=== PATIENT | female | born 2005 | race African-American/Black ===

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

== ENCOUNTER 2024-04-09 10:19 | Emergency (ER) | payer OTHER, SELFPAY ==
[2024-04-09 10:23] VITALS: BP 137/84; PULSE 90; RESP 18; TEMP 36.4; O2SAT 100
--- NOTE | 2024-04-09 11:43 | ED.URI ---
HPI - URI/Sore Throat General Chief Complaint: Upper Respiratory Infection Stated Complaint: sinus infection Time Seen by Provider: 04/09/24 11:14 History of Present Illness HPI Narrative: Patient is a 18 year old female with no PMH here with sore throat and nasal congestion x 2 days. she notes some increased sinus drainage which has caused her to cough up sputum. She has no past medical history. She has had a subjective fever at home. Denies shortness of breath. Denies diarrhea or abdominal pain. No sick contacts. Related Data Allergies Allergy/AdvReac Type Severity Reaction Status Date / Time No Known Allergies Allergy Verified 01/12/21 16:01 Review of Systems Review of Systems: All systems reviewed & are unremarkable except as noted in HPI and below PMFSH Social History Social History Gender identity (if verbalized by the patient): Female Exam Narrative: GENERAL: Well-appearing, well-nourished, and in no acute distress. HEAD: Normocephalic, atraumatic. EYES: PERRLA and EOMI. ENT: Nares clear. Mucous membranes moist. Mild maxillary sinus tenderness. Pharyngeal erythema without swelling or exudates. NECK: Supple. CHEST: Clear to auscultation. No respiratory distress. HEART: Regular rate and rhythm. Normal peripheral pulses. ABDOMEN: Soft, nontender, nondistended. EXTREMITIES: Normal range of motion. No edema. SKIN: Warm, dry, no rash. NEURO: No focal deficits. Alert and oriented x3. Course Course Emergency Course: Chart review performed, patient here with headaches, sinus drainage and sore throat x2 days. Triage vitals grossly normal. One prior ED visit in our system for a migraine headache in 2020. Patient seen evaluated, nontoxic appearing, alert, oriented. Concern for likely viral sinusitis given patient has only had symptoms for 2 days, less likely to be bacterial sinusitis. Will do COVID, influenza, RSV swab as well as a dose of Tylenol for her symptoms. She took no medications prior to coming into the emergency department. Patient agreeable to workup and plan. Patient COVID positive. Healthy 18 year old female with mild symptoms, do not believe she will benefit from Paxlovid at this time. The results of pertinent diagnostic studies and exam findings were discussed. The patient?s provisional diagnosis and plan of care were discussed with the patient and present family. The patient and/or present family expressed understanding of the diagnosis and plan. The nurse was instructed to provide written instructions and appropriate follow-up information. The patient understands their need and responsibility to obtain additional follow-up as instructed. The risks of medications administered and prescribed were discussed with the patient and family present. Vital Signs Vital signs: Vital Signs Temperature 97.5 F L 04/09/24 10:23 Pulse Rate 90 04/09/24 10:23 Respiratory Rate 18 04/09/24 10:23 Blood Pressure 137/84 04/09/24 10:23 Pulse Oximetry 100 04/09/24 10:23 Oxygen Delivery Room Air 04/09/24 10:23 Temperature 97.5 F L 04/09/24 10:23 Pulse Rate 90 04/09/24 10:23 Respiratory Rate 18 04/09/24 10:23 Blood Pressure 137/84 04/09/24 10:23 Pulse Oximetry 100 04/09/24 10:23 Oxygen Delivery Room Air 04/09/24 10:23 MDM - URI/Sore Throat Lab Data Labs: Lab Results 04/09/24 Range/Units 11:42 Influenza A (RT-PCR) Negative (Negative) Influenza B (RT-PCR) Negative (Negative) RSV (RT-PCR) Negative (Negative) SARS-CoV-2 RNA (RT-PCR) Positive A (Negative) Discharge Plan Discharge Clinical Impression: COVID, Acute viral sinusitis Patient Disposition: Home, Self-Care Condition: Stable Instructions: Antibiotic Form, COVID-19 (Coronavirus Disease 2019) (ED) Additional Instructions: You tested positive for COVID-19. Follow CDC guidelines for return to work. I recommen
[2024-04-09 12:24] LABS: Influenza A QL RT-PCR Negative (Negative); Influenza B QL RT-PCR Negative (Negative); RSV RNA, RT-PCR Negative (Negative); SARS-CoV-2 RNA PCR Positive (Negative)
[2024-04-09] MEDS: ACETAMINOPHEN 325 MG TABLET 650 MG PO (12:37)
[2024-04-09 12:59] VITALS: BP 126/84; PULSE 78; RESP 16; TEMP 36.4; O2SAT 100
== END 2024-04-09 13:01 | disposition home or self-care (01) ==
PROVIDERS: Emergency Provider Student in an Organized Health Care Education/Training Program
DX: U07.1 COVID-19 (principal); J01.90 Acute sinusitis, unspecified; B97.89 Other viral agents as the cause of diseases classified elsewhere
CPT/HCPCS: 87637; 99283; A9270

== ENCOUNTER 2024-06-03 10:34 | Emergency (ER) | payer OTHER, SELFPAY ==
[2024-06-03 10:47] VITALS: TEMP 36.8
[2024-06-03 10:51] VITALS: BP 130/97; PULSE 75; RESP 18; O2SAT 100
[2024-06-03 10:52] VITALS: O2SAT 100
--- NOTE | 2024-06-03 11:19 | ED.URI ---
HPI - URI/Sore Throat General Chief Complaint: Upper Respiratory Infection Stated Complaint: uri Time Seen by Provider: 06/03/24 11:01 History of Present Illness HPI Narrative: This is a 18-year-old otherwise healthy female presenting to the emergency department chief complaint of URI symptoms. She expresses headache, sinus pressure, productive cough. Intermittent symptoms for last several weeks. She was recently diagnosed with COVID 4 weeks prior but has been testing negative at home. Denies any fever, chills. No shortness of breath, chest pain, nausea, vomiting, vision changes. Has not seen anybody about this or taken anything [id number] besides Mucinex without improvement. Related Data Allergies Allergy/AdvReac Type Severity Reaction Status Date / Time No Known Allergies Allergy Verified 01/12/21 16:01 Review of Systems Review of Systems: [facility] Social History Social History Gender identity (if verbalized by the patient): Female Exam Narrative: GENERAL: [Well-appearing, well-nourished, and in no acute distress.] HEAD: [Normocephalic, atraumatic.] EYES: [PERRLA and EOMI.] ENT: Nares clear, no rhinorrhea or epistaxis. Mucous membranes moist. Some tenderness over the maxillary and frontal sinuses without any purulent drainage. Ear, nose and throat without any swelling, erythema, TMs are clear. NECK: Supple. CHEST: [Clear to auscultation. No respiratory distress.] HEART: [Regular rate and rhythm]. No murmur heard. [Normal peripheral pulses.] ABDOMEN: [Soft, nondistended], [nontender], [No rigidity or guarding] EXTREMITIES: Normal range of motion. [No edema.] SKIN: Warm, dry, no rash. NEURO: [No focal deficits]. Alert and oriented [x3.] PSYCH: [Normal mood and affect.] Course Vital Signs Vital signs: Vital Signs Temperature 36.8 C 06/03/24 10:47 Temperature 36.8 C 06/03/24 10:47 Pulse Rate 88 06/03/24 12:25 Respiratory Rate 18 06/03/24 12:25 Blood Pressure 132/92 H 06/03/24 12:25 Pulse Oximetry 100 06/03/24 12:25 Oxygen Delivery Room Air 06/03/24 10:52 MDM - URI/Sore Throat MDM Narrative Medical decision making narrative: 18-year-old otherwise healthy female presenting for viral URI type symptoms. Unremarkable physical examination with no concerning findings on ear nose or throat assessment. Normal vital signs without hypoxia or fever. Will be testing for COVID fluid RSV and treating symptomatically with combination of pseudoephedrine, Mucinex, ibuprofen. COVID swabs were negative. Patient was re-evaluated had complete symptomatic improvement. At this time she is stable for outpatient follow-up with prescriptions for some of the above medications. All her questions were answered she expressed understanding of discharge at this time. Lab Data Labs: Lab Results 06/03/24 Range/Units 12:07 Influenza A (RT-PCR) Negative (Negative) Influenza B (RT-PCR) Negative (Negative) SARS-CoV-2 RNA (RT-PCR) Negative (Negative) Discharge Plan Discharge Clinical Impression: Upper respiratory infection Patient Disposition: Home, Self-Care Condition: Stable Instructions: Antibiotic Form, Sinusitis (ED), Upper Respiratory Infection (DC), Viral Syndrome (ED) Prescriptions: New pseudoephedrine HCl 30 mg tablet 30 mg PO Q4-6H PRN (Reason: nasal congestion) Qty: 14 0RF Rx Instructions: DNExceed 4 doses/24h ibuprofen 600 mg tablet 600 mg PO TID PRN (Reason: fever or pain) Qty: 20 0RF guaifenesin [Mucus Relief ER] 600 mg tablet extended release 12hr 600 mg PO BID Qty: 20 0RF No Action fluticasone propionate [Flonase Allergy Relief] 50 mcg/actuation spray,suspension 1 spray intranasal Q12H 7 Days Qty: 16 0RF Rx Instructions: administer into each nostril guaifenesin [Mucinex] 1,200 mg tablet extended release 12hr
[2024-06-03] MEDS: IBUPROFEN 400 MG TABLET 800 MG PO (11:33)
[2024-06-03] MEDS: PSEUDOEPHEDRINE HCL 30 MG TABLET 60 MG PO (11:33)
[2024-06-03] MEDS: guaiFENesin 12 HR 600 MG TABCR PO (11:33)
[2024-06-03 12:25] VITALS: BP 132/92; PULSE 88; RESP 18; O2SAT 100
[2024-06-03 13:18] LABS: Influenza A QL RT-PCR Negative (Negative); Influenza B QL RT-PCR Negative (Negative); SARS-CoV-2 RNA PCR Negative (Negative)
[2024-06-03 13:37] VITALS: BP 130/97; PULSE 89; RESP 18; TEMP 36.6; O2SAT 100
== END 2024-06-03 13:39 | disposition home or self-care (01) ==
PROVIDERS: Emergency Provider Student in an Organized Health Care Education/Training Program
DX: J06.9 Acute upper respiratory infection, unspecified (principal); Z20.822 Contact with and (suspected) exposure to COVID-19
CPT/HCPCS: 87636; 99283; A9270

== ENCOUNTER 2024-07-08 07:16 | Emergency (ER) | payer OTHER, SELFPAY ==
[2024-07-08 07:20] VITALS: BP 146/79; PULSE 96; RESP 16; TEMP 37; O2SAT 99
[2024-07-08 07:28] VITALS: BP 132/101; PULSE 101; RESP 16; TEMP 36.4; O2SAT 100; O2SAT 99
--- NOTE | 2024-07-08 07:35 | PC.NURSE ---
Charting done by nursing unit manager Love corrales, RN agrees
--- NOTE | 2024-07-08 07:52 | ED.GENADULT ---
HPI - General Adult General Chief complaint: Upper Respiratory Infection Stated complaint: hoarse voice, st Time Seen by Provider: 07/08/24 07:21 History of Present Illness HPI narrative: 18-year-old female presented emergency department for evaluation for sore throat and congestion. Patient states the symptoms started after she was living in the emergency department. Patient states she had brought her son to the emergency department for similar symptoms including fever. Related Data Allergies Allergy/AdvReac Type Severity Reaction Status Date / Time No Known Allergies Allergy Verified 07/08/24 07:34 Review of Systems Review of Systems: All systems reviewed & are unremarkable except as noted in HPI and below PMFSH Social History Social History Gender identity (if verbalized by the patient): Female Exam Narrative: APPEARANCE: Well appearing, no pain, no distress, well-nourished. HEAD: normocephalic, atraumatic. EYES: PERRLA/EOMI, conjunctivae clear. NOSE: Normal no drainage EARS:TMS clear with good light reflex. THROAT: Pharynx clear, no exudate. NECK: Supple. No adenopathy, no masses. RESPIRATORY: Airway patent, respirations nonlabored. Clear to auscultation bilaterally, no rales, rhonchi, wheezing. CARDIOVASCULAR: Regular rate and rhythm without murmurs rubs or gallops. ABDOMINAL: Soft, nontender, nondistended, normal bowel sounds MUSCULOSKELETAL: Moves all extremities. Strength/ROM intact, No edema, No calf tenderness. NEURO: Alert. Cranial nerves II through XII intact. Grossly intact SKIN: Warm, dry. Normal Color Course Course Emergency Course: Patient was negative for influenza RSV COVID and strep. Suspect other viral etiology for her sore throat. Vital Signs Vital signs: Vital Signs Temperature 98.6 F 07/08/24 07:20 Pulse Rate 96 07/08/24 07:20 Respiratory Rate 16 07/08/24 07:20 Blood Pressure 146/79 H 07/08/24 07:20 Pulse Oximetry 99 07/08/24 07:20 Oxygen Delivery Room Air 07/08/24 07:20 Temperature 97.6 F 07/08/24 07:28 Pulse Rate 101 H 07/08/24 07:28 Respiratory Rate 16 07/08/24 07:28 Blood Pressure 132/101 H 07/08/24 07:28 Pulse Oximetry 99 07/08/24 07:28 Oxygen Delivery Room Air 07/08/24 07:28 Medical Decision Making MDM Narrative Medical decision making narrative: 18-year-old female presents emergency department for evaluation for sore throat. Patient was negative for influenza RSV COVID and strep. Suspect other viral etiology as the underlying cause for her sore throat. Patient was updated on the results of her workup. Patient was also updated on systematic treatment from. All questions concerns were addressed. Differential Diagnosis Differential Diagnosis: Viral sore throat, strep throat, COVID, RSV, influenza Vital Signs Vital Signs: Vital Signs Temperature 98.6 F 07/08/24 07:20 Pulse Rate 96 07/08/24 07:20 Respiratory Rate 16 07/08/24 07:20 Blood Pressure 146/79 H 07/08/24 07:20 Pulse Oximetry 99 07/08/24 07:20 Oxygen Delivery Room Air 07/08/24 07:20 Temperature 97.6 F 07/08/24 07:28 Pulse Rate 101 H 07/08/24 07:28 Respiratory Rate 16 07/08/24 07:28 Blood Pressure 132/101 H 07/08/24 07:28 Pulse Oximetry 99 07/08/24 07:28 Oxygen Delivery Room Air 07/08/24 07:28 Lab Data Labs: Lab Results 07/08/24 Range/Units 07:35 Influenza A (RT-PCR) Negative (Negative) Influenza B (RT-PCR) Negative (Negative) RSV (RT-PCR) Negative (Negative) SARS-CoV-2 RNA (RT-PCR) Negative (Negative) Group A Strep (PCR) Not detected (Negative) Discharge Plan Discharge Clinical Impression: Pharyngitis Patient Disposition: Home, Self-Care Condition: Stable Instructions: Antibiotic Form, Pharyngitis (ED) Additional Instructions: Decongestant to help with postnasal drip. Tylenol and ibuprofen for pain, body aches, fever. Follow a soft diet as needed. Have close follow-up with your primary care physician. If you have any worsening symptoms and please call or return to the emergency department Prescriptions: No Action pseudoephedrine HCl 30 mg tablet 30 mg PO Q4-6H PRN (Reason: nasal congestion) Qty: 14 0RF Rx Instructions: DNExceed 4 doses/24h ibuprofen 600 mg tablet 600 mg PO TID PRN (Reason: fever or pain) Qty: 20 0RF guaifenesin [Mucus Relief ER] 600 mg tablet extended release 12hr 600 mg PO BID Qty: 20 0RF fluticasone propionate [Flonase Allergy Relief] 50 mcg/actuation spray,suspension 1 spray intranasal Q12H 7 Days Qty: 16 0RF Rx Instructions: administer into each nostril guaifenesin [Mucinex] 1,200 mg tablet extended release 12hr 1,200 mg PO BID PRN (Reason: congestion) 10 Days Qty: 20 0RF Follow-up/Referrals: PHYSICIAN NOT ON STAFF,NONSTAFF [Primary Care Provider] -
[2024-07-08 08:09] LABS: Strep Group A RT-PCR NOT DETECTED (Negative)
[2024-07-08 08:19] LABS: Influenza A QL RT-PCR Negative (Negative); Influenza B QL RT-PCR Negative (Negative); RSV RNA, RT-PCR Negative (Negative); SARS-CoV-2 RNA PCR Negative (Negative)
[2024-07-08 08:39] VITALS: BP 139/103; PULSE 81; RESP 15; TEMP 36.4; O2SAT 100
== END 2024-07-08 08:39 | disposition home or self-care (01) ==
PROVIDERS: Emergency Provider Emergency Medicine
DX: J02.9 Acute pharyngitis, unspecified (principal); Z20.822 Contact with and (suspected) exposure to COVID-19
CPT/HCPCS: 87637; 87651; 99283

== ENCOUNTER 2025-09-05 20:53 | Emergency (ER) | payer OTHER, SELFPAY ==
[2025-09-05 21:02] VITALS: BP 139/96; PULSE 104; RESP 18; TEMP 37.6; O2SAT 98
--- OUTSIDE RECORDS SUMMARY | 2025-09-05 21:27 | XMS_ITS | Clinical Summary ---
Author Organization [facility] Address [address] [place] [address] Phone Care Team Providers Care Guidance Services Coordinator Name Role Phone Unavailable Primary Care Provider Unavailabl e Allergies No known active allergies Medications naproxen (NAPROSYN) 500 mg tablet Take 1 Tablet (500 mg) by mouth 2 times daily with meals. 21 Tablet 5 Active albuterol sulfate HFA 90 mcg/actuation aerosol inhaler Take 2 Puffs by inhalation every 6 hours as needed for Wheezing or Shortness of Breath. 8.5 Gram 5 Active codeine-guaiFEN esin (ROBITUSSIN-AC) 10-100 mg/5 mL LiquidIndicatio ns:Subacute cough Take 10 mL by mouth every 4 hours as needed for Cough. 120 mL Active Encounters Date Type Department Care Team Description 08/28/2025 External Device Data [facility] ABSTRACTION Provider, Abstract 07/31/2025 External Device Data [facility]CTION Provider, Abstract 07/31/2025 External Device Data [facility] Provider, Abstract 07/31/2025 External Device Data [facility] Provider, Abstract 07/25/2025 External Device Data [facility] Provider, Abstract 07/25/2025 External Device Data [facility] Provider, Abstract 07/10/2025 External Device Data [facility] Provider, Abstract 07/03/2025 External Device Data [facility]CTION Provider, Abstract 06/19/2025 External Device Data [facility] Provider, Abstract 06/19/2025 External Device Data [facility]CTION Provider, Abstract 06/19/2025 External Device Data [facility]STRACTION Provider, Abstract from Last 3 Months Social History Tobacco Use Types Packs/Day Years Used Date Smoking Tobacco: Never Tobacco Cessation:Counseling Given: Not Answered Alcohol Use Standard Drinks/Week Comments Not Currently 0 (1 standard drink = 0.6 oz pur e alcohol) Feeling Safe Answer Date Recorded Are you in a relationship wi th someone who hurts you emotionally and/or physically? 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 Gender Identity Not on file Sexual Orientation Not on file Last Filed Vital Signs Vital Sign Reading Time Taken Comments Blood Pressure 130/90 11/18/2024 12:44 AM CAR RENTAL AGENCY MANAGER Pulse 90 11/18/2024 12:44 AM CAR RENTAL AGENCY MANAGER Temperature 37.3 C (99.1 F) 11/18/2024 12:44 AM CAR RENTAL AGENCY MANAGER Respiratory Rate 16 11/18/2024 12:44 AM CAR RENTAL AGENCY MANAGER Oxygen Saturation 100% 11/18/2024 12:44 AM CAR RENTAL AGENCY MANAGER Inhaled Oxygen Concentration - - Weight 86.2 kg (190 lb) 11/17/2024 8:33 PM CAR RENTAL AGENCY MANAGER Height 157.5 cm (5' 2) 11/17/2024 8:33 PM CAR RENTAL AGENCY MANAGER Body Mass Index 34.75 11/17/2024 8:33 PM CAR RENTAL AGENCY MANAGER Plan of Treatment Health Maintenance Due Date Last Done Comments CHLAMYDIA SCREENING (ANNUAL) 11-24 YEARS 2014 HPV VACCINES (1 - 3-dose series) 2018 DTAP/TDAP/TD VACCINES (1 - Tdap) 2022 HEPATITIS B VACCINES (1 of 3 - 19+ 3-dose series) 08/29 CERVICAL CANCER SCREENING 2024 HPV/Cotest (21-29) 2024 PAP SMEAR 2024 INFLUENZA VACCINE (#1) 2025
--- OUTSIDE RECORDS SUMMARY | 2025-09-05 21:27 | XMS_ITS | Clinical Summary ---
Author Organization [facility] Address [address] [place] [address] Care Team Providers Care Skull Splitter Name Role Phone Floridalma Mclean MD Primary Care Provider [phone] Source Comments [facility],non-owned Affiliates and Associated Physician Practices is amultiple site organization consisting of ambulatory clinics and hospital sitesin [place], [place], [place] and [place]. This disclosure is being madepursuant to the Care Everywhere program and may not contain all information available regarding this patient. Last updated 18.[facility] Allergies No known active allergies Medications * Be aware that medications may not be up to date on this document. Alwaysverify current medications with the patient. riboflavin 100 MG tablet Take 4 (four) tablets by mouth every morning 120 tablet 5 01/14/2021 Active naproxen (NAPROSYN) 500 MG tablet Take 1 pill at start of a bad headache. Can take a second pill in 2 hours but No more then 4 pills in a week. 16 tablet 5 01/14/2021 Active Active Problems Problem Noted Date Diagnosed Date Migraine without aura and wi thout status migrainosus, not intractable 01/14/2021 Tension headache 01/14/2021 Social History Tobacco Use Types Packs/Day Years Used Date Smoking Tobacco: Never Assessed Comments Unknown Sex and Gender Information Value Date Recorded Sex Assigned at Not on file Legal Sex Female 12:37 PM SURGICAL SERVICES MANAGER Gender Identity Not on file Sexual Orientation Not on file Last Filed Vital Signs Vital Sign Reading Time Taken Comments Blood Pressure - - Pulse - - Temperature - - Respiratory Rate - - Oxygen Saturation - - Inhaled Oxygen Concentration - - Weight 102.1 kg (225 lb) 01/14/2021 9:27 AM CDT Height - - Body Mass Index - - Plan of Treatment Health Maintenance Due Date Last Done Comments HIV SCREENING 2018 HPV VACCINE (1 - 3-dose series) 2018 CHLAMYDIA/GONORRHEA SCREENING 2019 MENINGOCOCCAL (Group B) VACC INE SHARED DECISION-MAKING (1 of 2 - Standard) 2019 HEPATITIS C SCREENING 09/20/2021 DTAP/TDAP/TD VACCINES (1 - Tdap) 2022 HEPATITIS B VACCINE (1 of 3 - 19+ 3-dose series) 2022 DEPRESSION SCREENING 09/27/2024 COVID-19 VACCINE (1 - 2024-2 6 season) 2025 INFLUENZA VACCINE (#1) 2025 ZOSTER VACCINE (1 of 2) 2053 HIB VACCINE Aged Out No longer eligi ble based on patient's age to complete this topic MENINGOCOCCAL GROUPS A/C/Y/W VACCINE Aged Out No longer eligible b ased on patient's age to complete this topic PNEUMOCOCCAL VACCINE Aged Out No long er eligible based on patient's age to complete this topic Insurance [facility] Care Teams Skull Splitter Relationship Specialty Start Date End Date Floridalma Mclean MD [address] [place] [address] PCP - General 07/08/11
[2025-09-05 22:10] LABS: Influenza A QL RT-PCR Negative (Negative); Influenza B QL RT-PCR Negative (Negative); RSV RNA, RT-PCR Negative (Negative); SARS-CoV-2 RNA PCR Negative (Negative)
--- NOTE | 2025-09-05 22:12 | ED_ITS ---
HPI - Fever General Chief Complaint: Fever Stated Complaint: Fever, body aches; Time Seen by Provider: 09/05/25 22:06 History of Present Illness HPI Narrative: Patient is a 19-year-old female who presents to the ER with a 2 day history of headache, sore throat, fever, congestion, and body aches. She reports her son came home sick from a birthday libertarian and she started experiencing the same symptoms. Patient denies any shortness of breath, significant cough, or headache. She reports her only medical history is a Caesarean section. Pt reports she is 8 weeks . Related Data Allergies Allergy/AdvReac Type Severity Reaction Status Date / Time No Known Allergies Allergy Verified 07/08/24 07:34 Review of Systems Review of Systems: All systems reviewed & are unremarkable except as noted in HPI and below PMFSH Social History Social History Gender identity (if verbalized by the patient): Female Exam Narrative: GENERAL: Ill appearing, well-nourished, non-toxic, in no acute distress. HEAD: Normocephalic, atraumatic. NECK: Supple. Mild cervical adenopathy, no masses. RESPIRATORY: Airway patent, respirations nonlabored. Clear to auscultation bilaterally, no rales, rhonchi, wheezing. CARDIOVASCULAR: Regular rate and rhythm without murmurs, rubs, or gallops. Peripheral pulses 2+ and equal bilaterally. ABDOMINAL: Soft, nontender, nondistended, no hepatosplenomegaly. Normoactive BS. MUSCULOSKELETAL: Moves all extremities. Strength/ROM intact without gross deformities. SKIN: Warm, dry, normal color. No rashes. NEURO: A&O X3. Speech clear. Cranial nerves II-XII intact. No ataxic movements. PSYCHIATRIC: Appropriate mood and affect. Normal interaction. Course Vital Signs Vital signs: Vital Signs Temperature 37.6 C H 09/05/25 21: Pulse Rate 104 H 09/05/25 21:02 Respiratory Rate 18 09/05/25 21:02 Blood Pressure 139/96 H 09/05/25 21:02 Pulse Oximetry 98 09/05/25 21: Oxygen Delivery Room Air 09/05/25 21: Temperature 37.6 C H 09/05/25 21:02 Pulse Rate 104 H 09/05/25 21:02 Respiratory Rate 18 09/05/25 21:02 Blood Pressure 139/96 H 09/05/25 21:02 Pulse Oximetry 98 09/05/25 21:02 Oxygen Delivery Room Air 09/05/25 21:02 [facility] Narrative Medical decision making narrative: Patient is a 19-year-old female who presents to the ER with a 2 day history of headache, sore throat, fever, congestion, and body aches. She reports her son came home sick from a birthday libertarian and she started experiencing the same symptoms. Patient denies any shortness of breath, significant cough, urinary symptoms or headache. She reports her only medical history is a Caesarean section. Pt reports she is 8 weeks . Patient Education/Shared MDM: Results of lab work shared with patient. She endorses improvement of symptoms following medication administration. Patient strongly advised to maintain hydration status upon discharge and follow-up with her OBGYN as soon as possible. She will not be discharged home with any new prescriptions. Strict return precautions provided. Patient verbalized understanding and is in agreement with plan. Vital signs stable at time of discharge. All questions answered. Differential Diagnosis Differential Diagnosis: Strep throat, COVID, fluid, upper respiratory infection Lab Data [facility] Lab Attestation statement: I personally reviewed the patient's lab results. Labs: Lab Results 09/05/25 09/05/25 Range/Units 21:25 22:29 Influenza A (RT-PCR) Negative (Negative) Influenza B (RT-PCR) Negative (Negative) RSV (RT-PCR) Negative (Negative) SARS-CoV-2 RNA (RT-PCR) Negative (Negative) Group A Strep (PCR) Not detected (Negative) Discharge Plan Discharge Clinical Impression: Upper respiratory infection Patient Disposition: Home Condition: Stable Instructions: Antibiotic Form, Upper Respiratory Infection (ED) Additional Instructions: Please return to the ER with any worsening symptoms. Follow-up with your OBGYN in the next 2-3 days to ensure you are feeling better. You may take Tylenol as needed for pain control. Please remember to drink lots of water. Patient Language: Upper Sorbian Prescriptions: No Action pseudoephedrine HCl 30 mg tablet 30 mg PO Q4-6H PRN (Reason: nasal congestion) Qty: 14 0RF Rx Instructions: DNExceed 4 doses/24h ibuprofen 600 mg tablet 600 mg PO TID PRN (Reason: fever or pain) Qty: 20 0RF guaifenesin [Mucus Relief ER] 600 mg tablet extended release 12hr 600 mg PO BID Qty: 20 0RF fluticasone propionate [Flonase Allergy Relief] 50 mcg/actuation spray,suspension 1 spray intranasal Q12H 7 Days Qty: 16 0RF Rx Instructions: administer into each nostril guaifenesin [Mucinex] 1,200 mg tablet extended release 12hr 1,200 mg PO BID PRN (Reason: congestion) 10 Days Qty: 20 0RF Follow-up/Referrals: Leland Pate MD [Physician, SUBSTATION MANAGER] PHYSICIAN NOT ON STAFF,NONSTAFF [Non-Staff] Stand Alone Forms: Work/School Release IP Time of Disposition: 23:07
[2025-09-05] MEDS: ACETAMINOPHEN 500 MG TABLET 1000 MG PO (22:29)
--- OUTSIDE RECORDS SUMMARY | 2025-09-05 22:35 | XMS_ITS | Continuity of Care Document ---
Author Organization [facility] [place] Address [address] [place] [address] Assessment No assessment recorded. Plan of Treatment Reminders Order Date Submit Date Provider Last Modified By Organization Details Last Modified Time Details Appointments U/S OB FIRST LOOK 2025 08:30A M ULTRASOUND Not available Not available Not available OB ROUTINE 2025 09:00A M RHINA DEVRIES MD Not available Not available Not available Lab None recorde d. Referral None recorde d. Procedures None recorde d. Surgeries None recorde d. Imaging None recorde d. Medication Orders None recorde d. Patient TargetsNo targets recorded. Patient InstructionsNo instructions recorded. Reason for Referral None Reported. Results Created Date Observation Date Name Description Value Unit Range Abnormal Flag Note LastModifiedBy Organization Detail LastModifiedTime 09/03/20 25 09/03/2025 imagi ng/di agnos tic resul t No observ ation record ed. MARLEN Mcgovern [address], [place], [address], 09/03/2025 11:40:48 Result Notes None recorded. Procedures Surgical History Date Name Laterality Status Provider Name and Address Organization Details Recorded Time 08/21/20 24 Nexplanon Removal completed RHINA DEVRIES MD [address], [place], [address], , P[facility] 08/21/2024 16:45:12 11/30/19 24 Control Implant Replacement completed Merry Lira, NAV[facility]- [address], [place], [address], [place] [facility] 11/30/2023 14:58:01 08/29/20 19 Caesarean Section completed Awa Bennett [facility] 11/30/2023 14:37:15 Imaging Results None recorded. Procedure Notes None recorded. Medical Equipment None Reported. Allergies No known drug allergies Medications Name Sig Start Date Stop Date Status Note LastModified by Organization Details LastModified Time doxycycline hyclate 100 mg capsule Take 1 capsule twice a day by oral route for 7 days. 09/03 completed Not Available Not Available Not Available prednisone 20 mg tablet 11/29 completed Not Available Not Available Not Available benzonatate 100 mg capsule 11/29 completed Not Available Not Available Not Available ibuprofen 600 mg tablet 07/10 completed Not Available Not Available Not Available fluticasone propionate 50 mcg/actuati on nasal spray,suspe nsion 07/10 completed Not Available Not Available Not Available doxycycline hyclate 100 mg tablet Take 1 tablet twice a day by oral route with meal(s) for 7 days. 01/12 completed Not Available Not Available Not Available Nexplanon 68 mg subdermal implant Inject 1 implant by subcutane ous route. 07/10 completed Not Available Not Available Not Available guaifenesin ER 600 mg tablet, extended release 12 hr 07/10 completed Not Available Not Available Not Available Vitals Date Recorded Body height Body mass index (BMI) Body weight Systolic And Diastolic Provider Name and Address Organization Details Last Updated DateTime 07/10/2025 157.48 cm 43.2 kg/m2 499033.8 g 134/88 mm[Hg] Awa Bennett [facility] 07/10/2025 10:05:59 Social History Question Answer Notes LastModified by Organizat ion Details LastModified Time Tobacco Smoking Status Never Smoker Awa Bennett null, [facility] 11/30/2023 14:36:33 Are You Blind Or Do You Have Difficulty Seeing? No Information n ot available 11/30/2023 What Is Your Level Of Caffeine Consumption? None Information not available 11/30/2023 In The 14 Days Before Symptom Onset, Have You Had Close Contact With A Laboratory-confirm ed COVID-19 While That Case Was Ill? No Information n ot available 11/30/2023 In The 14 Days Before Symptom Onset, Have You Had Close Contact With A Person Who Is Under Investigation For COVID-19 While That Person Was Ill? No Information not available 11/30/2023 Have You Been To An Area Known To Be High Risk For COVID-19? No Information not available 11/30/2023 Are You Deaf Or Do You Have Serious Difficulty Hearing? No Information not available 11/30/2023 What Type Of Diet Are You Following? REGULAR Information n ot available 11/30/2023 What Is The Highest Grade Or Level Of School You Have Completed Or The Highest Degree You Have Received? [id number] Information not available 11/30/2023 Are There Any Guns Present In Your Home? No Information not available 11/30/2023 Do You Use Protection During Sex? No Information not available 11/30/2023 Do You Use Your Seat Belt Or Car Seat Routinely? Yes Information not available 11/30/2023 Do You Have Smoke And Carbon Monoxide Detectors In Your Home? Yes Information not available 11/30/2023 How Much Tobacco Do You Smoke? No Information not available 11/30/2023 Do You Use Sunscreen Routinely? No Information not available 11/30/2023 Have You Used IV Drugs? No Information not available 11/30/2023 Do You Have Difficulty Walking Or Climbing Stairs? No Information not available 11/30/2023 Sex: Unknown Functional Status Question Answer Note LastModified by Organizat ion Details LastModified Time Do you use any illicit or recreational drugs? No Information not available 11/30/2023 What is your level of alcohol consumption? None Information not available 11/30/2023 Are you currently employed? Yes Information not available 11/30/2023 Are you able to walk independently without assistance or assistive devices? YESWOREST Information not available 11/30/2023 Are you able to care for yourself independently? Yes Information not available 11/30/2023 What is your occupation? Employed Information not available 11/30/2023 Do you have difficulty dressing, bathing, grooming, or toileting? No Information not available 11/30/2023 What is your exercise level? None Information not available 11/30/2023 Mental Status Question Answer Note LastModified by Organization D etails LastModified Time Do you feel stressed (tense, restless, nervous, or anxious, or unable to sleep at night)? [id number] Information not available 11/30/2023 Family History Relationship Description Onset Age of this Age Resolved Age Notes LastModified by Organization Details LastModified Time Mother Hypertensive disorder Not available 2023 14:36:22 Maternal Grandfather Hypertensive disorder Not available 2023 14:36:22 Maternal Grandmother Hypertensive disorder Not available 2023 14:36:22 Paternal Grandfather Hypertensive disorder Not available 2023 14:36:22 Paternal Grandmother Hypertensive disorder Not available 2023 14:36:22 Medical History Condition Response Allergies (Food, seasonal, environmental ) N Other Y Blood Transfusion N Drug/Latex Allergies/Reactions N Breast Cancer N Dermatologic Disorders N Lung Disease N Defects or Inherited Disease N Breast Problem N Gestational Diabetes N Hematologic disorders N Anesthesia Complications N History of STI Y Deep Vein Thrombosis N Polycystic ovary syndrome N Anxiety Disorder N Autoimmune disease N Arthritis N Infertility N Polyps N Acid Reflux (GERD) N History of abnormal pap N Cancer N Stroke N Varicosities N Neurologic/Epilepsy N Endometriosis N High Cholesterol N Headaches N Fibromyalgia N Kidney Disease N Heart Problems N Kidney or Bladder Problems N Thyroid Problems N GI Problems N Eating Disorder N Anemia N Art (IVF or FET) N Psychiatric Illness N Ovarian Cancer N Diabetes N Pulmonary (TB, Asthma) N Hepatitis/Liver Disease N No Past Medical History N Eczema N Urinary Tract Infection N Abuse/Domestic Violence N Asthma N Trauma/Violence N Depression/ depression N Heart Disease N Pre-Eclampsia N Hypertension N Osteoporosis N Thrombophilias N Gynecological History Statement/Question Response Flow Heavy Date of LMP 07/07/2025 On BCP's at Conception? N N Was last menstrual period normal Y STIs/STDs Y HPV Vaccine Y Duration of Flow (days) 7 Current Control Method None Age at First Child 13 Are cycles usually normal Y Frequency of Cycle (Q days) 30 Sexually Active? Y IUD Menses Monthly Y Age of first menstrual cycle 11 Date of Last Pap Smear Sexual Problems? Yes LMP Definite N Obstetrics History GPAL:G 1 P 1 0 0 1 Type Value Full Term 1 Living 1 Total 1 Past Encounters Encounter ID Performer Location Encounter Start Date Encounter Closed Date Diagnosis/Indication Diagnosis SNOMED-CT Code Diagnosis ICD10 Code Diagnosis IMO Codes Diagnosis Note [id number] SOFÍA Renee [place] [address] [address] 07/10/2025 09:53:36 07/10/2025 11:45:05 Chlamydial infection 044826891 A74.9 [id number] Complete entire course of doxycyline No IC until all partners have been treated and its been 10 days since last dose of medication for allDiscuss ed the various types of STIs, related symptoms and the potential consequenc es (including effects on fertility) of STI infections . Reviewed ways to limit exposure and prevention techniques .TISH in 6-8 wks Cyst of right ovary 1223 [id number] N83.201 [id number] records request filled out by pt and faxed to obtain recent pelvic u/swe agreed to repeat a pelvic u/s in 6-8 wks along with TISH of chlamydiac ontracepti on options reviewed , declined at this timePrecau tions reviewed Time spent in visit is a total of 30 mins with at least 50% of visit consisting of counseling and review of plan of care. Health Concerns Section Related Observation LastModified by Organization Detai ls LastModified Time None Recorded Concern Status LastModified by Organization Details LastModified Time None Recorded Payers Encounter Date Sequence Insurance Name Policy Number Policy Zelaya Covered Member ID Zelaya Member ID Guarantor Name 07/10/2025 1 [facility] (MEDICAID HMO) [id number] Rehan Zaragoza [id number] Rehan Zaragoza Notes Date Note Type Note Provider Name and Address Organization Details Recorded Time 07/10/2025 text/html 19yo [id number] today for ED f/u. She went to the ED for pelvic pain on 07/02. (+) chlamydia and started on doxycyline (has 2 days left). Noted to have a 3.6cm right ovarian cyst per pt via pelvic u/s. Symptoms have been improving.Her partner has started treatmentDenies abnormal vaginal discharge, odors, itching, irritationNeg n/v/fneg flu-like symptoms SOFÍA Renee [address], [place], [address], [place] - [facility] 07/10/2025 11:41:56 OBGyn Episode No OBEpisode recorded.
--- OUTSIDE RECORDS SUMMARY | 2025-09-05 22:35 | XMS_ITS | Clinical Summary ---
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 Gender Identity Not on file Sexual Orientation Not on file Last Filed Vital Signs Vital Sign Reading Time Taken Comments Blood Pressure 130/90 11/18/2024 12:44 AM SOLE SEAMER Pulse 90 11/18/2024 12:44 AM SOLE SEAMER Temperature 37.3 C (99.1 F) 11/18/2024 12:44 AM SOLE SEAMER Respiratory Rate 16 11/18/2024 12:44 AM SOLE SEAMER Oxygen Saturation 100% 11/18/2024 12:44 AM SOLE SEAMER Inhaled Oxygen Concentration - - Weight 86.2 kg (190 lb) 11/17/2024 8:33 PM SOLE SEAMER Height 157.5 cm (5' 2) 11/17/2024 8:33 PM SOLE SEAMER Body Mass Index 34.75 11/17/2024 8:33 PM SOLE SEAMER Plan of Treatment Health Maintenance Due Date Last Done Comments CHLAMYDIA SCREENING (ANNUAL) 11-24 YEARS 2014 HPV VACCINES (1 - 3-dose series) 2018 DTAP/TDAP/TD VACCINES (1 - Tdap) 2022 HEPATITIS B VACCINES (1 of 3 - 19+ 3-dose series) 08/29 CERVICAL CANCER SCREENING 2024 HPV/Cotest (21-29) 2024 PAP SMEAR 2024 INFLUENZA VACCINE (#1) 2025
--- OUTSIDE RECORDS SUMMARY | 2025-09-05 22:35 | XMS_ITS | Clinical Summary ---
Author Organization [facility] Address [address] [place] [address] Care Team Providers Care Tax Manager Cpa Name Role Phone Floridalma Mclean MD Primary Care Provider [phone] Source Comments [facility],non-owned Affiliates and Associated Physician Practices is amultiple site organization consisting of ambulatory clinics and hospital sitesin [place], [place], [place] and [place]. This disclosure is being madepursuant to the Care Everywhere program and may not contain all information available regarding this patient. 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
--- OUTSIDE RECORDS SUMMARY | 2025-09-05 22:35 | XMS_ITS | Continuity of Care Document ---
Author Organization [facility] [place] Address [address] [place] [address] Assessment No assessment recorded. Plan of Treatment Reminders Order Date Submit Date Provider Last Modified By Organization Details Last Modified Time Details Appointments U/S OB FIRST LOOK 2025 08:30A M ULTRASOUND Not available Not available Not available OB ROUTINE 2025 09:00A M RHINA DEVRIES MD Not available Not available Not available Lab aneuplo idy risk, chromos ome specifi c circula ting cell free (ccf) DNA, materna l serum 2024 025 [facility], [address], [place], [address], 09/03/2025 10:30:14 HbA1c (hemogl obin A1c), blood 2024 025 [facility] (Lab), [address], [place], [address], 09/03/2025 10:30:26 type + screen, blood 2024 025 [facility] (Lab), [address], [place], [address], 09/03/2025 10:30:14 rubella igg Ab, titer, serum 2024 025 [facility] (Lab), [address], [place], [address], 09/03/2025 10:30:27 CBC w/ auto diff 2024 025 [facility] (Lab), [address] [facility] [address], [place], [address], 09/03/2025 10:30:27 hepatit is C virus Ab, serum 2024 025 [facility] (Lab), [address], [place], [address], 09/03/2025 10:30:26 HBsAg (hepati tis B surface Ag), serum 2024 025 [facility] (Lab), [address], [place], [address], 09/03/2025 10:30:27 RPR (rapid plasma reagin) , serum 2024 025 [facility] (Lab), [address], [place], [address], 09/03/2025 10:30:27 HIV 1+2 AB + HIV 1 p24 Ag, qualita tive immunoa ssay, serum 2024 025 [id number] [facility] (Lab), [address] [place], [address], 09/03/2025 10:30:13 genetic screen, unspeci fied specime n 2024 025 [email or web address] [facility], [address], [place], [address], 09/03/2025 10:30:14 Referral None recorde d. Procedures None recorde d. Surgeries None recorde d. Imaging None recorde d. Medication Orders None recorde d. Patient TargetsNo targets recorded. Patient InstructionsNo instructions recorded. Reason for Referral None Reported. Results Created Date Observation Date Name Description Value Unit Range Abnormal Flag Note LastModifiedBy Organization Detail LastModifiedTime 09/03/20 25 09/03/2025 CT/GC AND TRICH OMONA S VAGIN [place] (RRNA ), URINE chlamydia trachomatis, PCR Negati ve negati ve Not Available [facility] (Lab) [address], [place], [address], 09/04/2025 16:25:01 09/03/20 25 09/03/2025 CT/GC AND TRICH OMONA S VAGIN [place] (RRNA ), URINE neisseria gonorrhoeae, PCR Negati ve negati ve Not Available [facility] (Lab) [address], [place], [address], 09/04/2025 16:25:01 09/03/20 25 09/03/2025 CT/GC AND TRICH OMONA S VAGIN [place] (RRNA ), URINE trichomonas vaginalis ribosomal RNA (rrna) Negati ve negati ve Not Available [facility] (Lab) [address], [place], [address], 09/04/2025 16:25:01 09/03/20 25 09/03/2025 imagi ng/di agnos tic resul t No observ ation record ed. MARLEN Mcgovern [address], [place], [address], 09/03/2025 11:40:48 Result Notes None recorded. Procedures Surgical History Date Name Laterality Status Provider Name and Address Organization Details Recorded Time 08/21/20 24 Nexplanon Removal completed RHINA DEVRIES MD [address], [place], [address], [facility] 08/21/2024 16:45:12 11/30/19 24 Control Implant Replacement completed SOFÍA Mims- [address], [place], [address], [facility] 11/30/2023 14:58:01 08/29/20 19 Caesarean Section completed Awa Bennett [facility] 11/30/2023 14:37:15 Imaging Results None recorded. [...] and Address Organization Details Last Updated DateTime 09/03/2025 157.48 cm 44.4 kg/m2 791479.95 g 142/89 mm[Hg] GIANLUCA MCGRATH [facility] 09/03/2025 10:03:36 Social History Question Answer Notes LastModified by Organizat ion Details LastModified Time Tobacco Smoking Status Never Smoker Awa Donald obrien, [facility] 11/30/2023 14:36:33 Are You Blind Or [...] Or The Highest Degree You Have Received? [id number] Information not available 11/30/2023 Are There Any [...] anxious, or unable to sleep at night)? [id number] Information not available 11/30/2023 Family History Relationship [...] (Food, seasonal, environmental ) N Other Y Breast Cancer N Drug/Latex Allergies/Reactions N Blood Transfusion N Dermatologic Disorders N Lung Disease N [...] ICD10 Code Diagnosis IMO Codes Diagnosis Note [id number] RHINA DEVRIES MD [place] [address] [address] 09/03/2025 09:33:21 09/03/2025 10:00:12 [id number] RHINA DEVRIES MD [place] [address] [address] 09/03/2025 09:34:04 09/03/2025 10:49:04 test positive [id number] Z32.01 [id number] 1. Exam today within normal limits.2. Ultrasound today confirms GA and viability. EDC . GC/Clamydi a testing done: will f/u as indicated. 4. ACOG guidelines and plan of care for reviewed with patient. All questions answered.5 . Return to office at 12 weeks for new OB visit6. Will need new OB labs at next visit.7. Genetic screening: desires at 10 weeks. History of chlamydial infection 917629924 Z86.19 [id number] - repeat test sent today Genetic in vestigation procedure 72912040 Z31.430 Health Concerns Section Related Observation LastModified by Organization Detai ls LastModified Time None Recorded Concern Status LastModified by Organization Details LastModified Time None Recorded Payers Encounter Date Sequence Insurance Name Policy Number Policy Zelaya Covered Member ID Zelaya Member ID Guarantor Name 09/03/2025 1 [facility] (MEDICAID HMO) [id number] Rehan Zaragoza [id number] Rehan Zaragoza Notes Date Note Type Note Provider Name and Address Organization Details Recorded Time 09/03/2025 text/html ROS as noted in the HPI Presents to the office today to confirm . Patient denies any problems up to this point with her . Patient denies cramping or vaginal bleeding. G1: PCS, reports she was induced for 8 hours then was told she needed a c section; otherwise uncomplicated Patient is in a relationship with Chip. Lives with her. 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 Denies tobacco/EtOH/illici ts. RHINA DEVRIES MD [address], [place], [address], [facility] 09/03/2025 10:31:02 OBGyn Episode No OBEpisode recorded.
--- OUTSIDE RECORDS SUMMARY | 2025-09-05 22:35 | XMS_ITS | Data Portability ---
Author Organization [facility] [place] Address [address] [place] [address] Assessment No assessment recorded. Plan of Treatment [...] (ccf) DNA, materna l serum 2024 025 [email or web address] [facility], [address], [place], [address], 09/03/2025 10:30:14 HbA1c (hemogl obin A1c), blood 2024 025 [facility] (Lab), [address], [place], [address], 09/03/2025 10:30:26 type + screen, blood 2024 025 [facility] (Lab), [address], [place], [address], 09/03/2025 10:30:14 rubella igg Ab, titer, serum 2024 025 [facility] (Lab), [address], [place], [address], 09/03/2025 10:30:27 CBC w/ auto diff 2024 025 [facility] (Lab), [address] [facility], [place], [address], 09/03/2025 10:30:27 hepatit is C virus Ab, serum 2024 025 [facility] (Lab), [address] [facility], [place], [address], 09/03/2025 10:30:26 HBsAg (hepati tis B surface Ag), serum 2024 025 [facility] (Lab), [address] [facility], [place], [address], 09/03/2025 10:30:27 RPR (rapid plasma reagin) , serum 2024 025 [facility] (Lab), [address] [facility], [place], [address], 09/03/2025 10:30:27 HIV 1+2 AB + HIV 1 p24 Ag, qualita tive immunoa ssay, serum 2024 025 [id number] [facility] (Lab), [address] [facility], [place], [address], 09/03/2025 10:30:13 genetic screen, unspeci fied specime n 2024 025 [email or web address] [facility], [address], [place], [address], 09/03/2025 10:30:14 Referral None recorde d. Procedures None recorde d. Surgeries None recorde d. Imaging None recorde d. Medication Orders None recorde d. Patient TargetsNo targets recorded. Patient InstructionsNo instructions recorded. Reason for Referral None Reported. Results Created Date Observation Date Name Description Value Unit Range Abnormal Flag Note LastModifiedBy Organization Detail LastModifiedTime 05/26/20 24 05/26/2024 CT/GC AND TRICH OMONA S VAGIN [place] (RRNA ), URINE chlamydia trachomatis, PCR Negati ve negati ve Not Available [facility] (Lab) [address] [facility], [place], [address], 05/27/2024 12:50:30 05/26/20 24 05/26/2024 CT/GC AND TRICH OMONA S VAGIN [place] (RRNA ), URINE neisseria gonorrhoeae, PCR Negati ve negati ve Not Available [facility] (Lab) [address] [facility], [place], [address], 05/27/2024 12:50:30 05/26/20 24 05/26/2024 CT/GC AND TRICH OMONA S VAGIN [place] (RRNA ), URINE trichomonas vaginalis ribosomal RNA (rrna) Negati ve negati ve Not Available [facility] (Lab) [address] [facility], [place], [address], 05/27/2024 12:50:30 08/21/20 24 08/21/2024 CT/GC AND TRICH OMONA S VAGIN [place] (RRNA ), URINE chlamydia trachomatis, PCR Negati ve negati ve Not Available [facility] (Lab) [address] [facility], [place], [address], 08/22/2024 13:30:35 08/21/20 24 08/21/2024 CT/GC AND TRICH OMONA S VAGIN [place] (RRNA ), URINE neisseria gonorrhoeae, PCR Negati ve negati ve Not Available [facility] (Lab) [address] [facility], [place], [address], 08/22/2024 13:30:35 08/21/20 24 08/21/2024 CT/GC AND TRICH OMONA S VAGIN [place] (RRNA ), URINE trichomonas vaginalis ribosomal RNA (rrna) Negati ve negati ve Not Available [facility] (Lab) [address] [facility], [place], [address], 08/22/2024 13:30:35 09/03/20 25 09/03/2025 CT/GC AND TRICH OMONA S VAGIN [place] (RRNA ), URINE chlamydia trachomatis, PCR Negati ve negati ve Not Available [facility] (Lab) [address] [facility], [place], [address], 09/04/2025 16:25:01 09/03/20 25 09/03/2025 CT/GC AND TRICH OMONA S VAGIN [place] (RRNA ), URINE neisseria gonorrhoeae, PCR Negati ve negati ve Not Available [facility] (Lab) [address] [facility], [place], [address], 09/04/2025 16:25:01 09/03/20 25 09/03/2025 CT/GC AND TRICH OMONA S VAGIN [place] (RRNA ), URINE trichomonas vaginalis ribosomal RNA (rrna) Negati ve negati ve Not Available [facility] (Lab) [address] [facility], [place], [address], 09/04/2025 16:25:01 09/03/20 25 09/03/2025 imagi ng/di agnos tic resul t No observ ation record ed. MARLEN Mcgovern [address] [address], [place], [address], 09/03/2025 11:40:48 Result Notes None recorded. Procedures Surgical History Date Name Laterality Status Provider Name and Address Organization Details Recorded Time 08/21/20 24 Nexplanon Removal completed RHINA DEVRIES MD [address], [place], [address], [facility] 08/21/2024 16:45:12 11/30/19 24 Control Implant Replacement completed SOFÍA Mims- [address], [place], [address], [facility] 11/30/2023 14:58:01 08/29/20 19 Caesarean Section completed Awa Bennett [facility] 11/30/2023 14:37:15 Imaging Results None recorded. [...] Updated DateTime 07/10/2025 157.48 cm 43.2 kg/m2 587705.8 g 134/88 mm[Hg] Awa Bennett [facility] 07/10/2025 10:05:59 Date Recorded Body height Body mass index (BMI) Body mass index (BMI) [Percentile] Per age and sex Body weight Systolic And Diastolic Provider Name and Address Organization Details Last Updated DateTime 08/21/2024 157.48 cm 36.9 kg/m2 97 % 44612.6 6 g 130/82 mm[Hg] Gabby Bundy [facility] 16:11:02 Date Recorded Body height Body mass index (BMI) Body weight Systolic And Diastolic Provider Name and Address Organization Details Last Updated DateTime 09/03/2025 157.48 cm 44.4 kg/m2 570212.95 g 142/89 mm[Hg] GIANLUCA MCGRATH [facility] 09/03/2025 10:03:36 Social History Question Answer Notes LastModified by Organizat ion Details LastModified Time Tobacco Smoking Status Never Smoker Awa Bennett camille, [facility] 11/30/2023 14:36:33 Are You Blind Or [...] Or The Highest Degree You Have Received? [id number] Information not available 11/30/2023 Are There Any [...] anxious, or unable to sleep at night)? [id number] Information not available 11/30/2023 Family History Relationship [...] ICD10 Code Diagnosis IMO Codes Diagnosis Note [id number] Merry Lira , [facility] [address] [address] 11/30/2023 13:55:35 11/30/2023 15:04:24 Contraception care management 219420317 Z30.9 Discussed all control options in depth and pt is interested in Nexplanon. Discussed all risks and benefits including irregular unschedule d bleeding. Pt verbalized understand ing and would like to proceed. She is aware that she needs to call us on the 1st day of her period to schedule placement. Implantati on of subcutaneous contraceptive 219650503 Z30.46 Patient is here currently on her menses. She was given all the r/b/a of placement of the Nexplanon device and has signed the consent. She is fully aware of all possible side effects of the device and has decided to move forward with placement. Insertion site was cleansed with betadine and 3cc lidocaine used for anesthesia . Device was placed in the left arm per usual fashion w/o complicati on and patient instructed to f/u in one month or earlier if there are any si/sx of infection or hypersensi tivity at the insertion site Removal of subcutaneous contraceptive 630702732 Z30.46 Removal site was cleansed with betadine and 3cc of lidocaine used for anesthesia . Device was removed in normal fashion without difficulty . Steri stips and pressure bandage placed. [id number] [facility] [address] [address] 01/13/2024 15:19:30 01/13/2024 17:21:17 Venereal disease screening 500807577 Z11.3 TISH urine sentNo issuesPart ner treatedCou nseled on safe sex practices. Time spent in visit is a total of 15 mins with at least 50% of visit consisting of counseling and review of plan of care. [id number] RHINA DEVRIES MD [place] [address] [address] 03/24/2024 12:30:22 03/24/2024 12:50:06 Venereal disease screening 887999107 Z11.3 - discussed testing options including urine for GC/CT/tric h and blood testing for HIV/HepB/H epC/RPR- patient desires all testing- will follow up as results are available [id number] RHINA DEVRIES MD [place] [address] [address] 05/26/2024 15:25:28 05/26/2024 15:43:15 Venereal disease screening 669256648 Z11.3 [id number] RHINA DEVRIES MD [place] [address] [address] 08/21/2024 15:55:22 08/21/2024 16:52:48 Removal of subcutaneous contraceptive 496879719 Z30.46 - Nexplanon removed without issue- declines other control at this time- discussed quick return of fertility Venereal d isease screening 874670608 Z11.3 - urine sent for STD screening [id number] Michaelle Wilcox NAVIN [place] [address] [address] 07/10/2025 09:53:36 07/10/2025 11:45:05 Chlamydial infection 329605124 A74.9 663450 Complete entire course of doxycyline No IC until all partners have been treated and its been 10 days since last dose of medication for allDiscuss ed the various types of STIs, related symptoms and the potential consequenc es (including effects on fertility) of STI infections . Reviewed ways to limit exposure and prevention techniques .TISH in 6-8 wks Cyst of right ovary 1223 156933 9438605 N83.201 [id number] records request filled out by pt and faxed to obtain recent pelvic u/swe agreed to repeat a pelvic u/s in 6-8 wks along with TISH of chlamydiac ontracepti on options reviewed , declined at this timePrecau tions reviewed Time spent in visit is a total of 30 mins with at least 50% of visit consisting of counseling and review of plan of care. [id number] RHINA DEVRIES MD [place] [address] [address] 09/03/2025 09:33:21 09/03/2025 10:00:12 [id number] RHINA DEVRIES MD [place] [address],[place] [address] 09/03/2025 09:34:04 09/03/2025 10:49:04 test positive 870046336 Z32.01 [id number] 1. Exam today within normal limits.2. Ultrasound today confirms GA and viability. EDC . GC/Levon a testing done: will f/u as indicated. 4. ACOG guidelines and plan of care for reviewed with patient. All questions answered.5 . Return to office at 12 weeks for new OB visit6. Will need new OB labs at next visit.7. Genetic screening: desires at 10 weeks. History of chlamydial infection 113054562 Z86.19 1242251 - repeat test sent today Genetic in vestigation procedure 15818615 Z31.430 Health Concerns Section Related Observation LastModified by Organization Detai ls LastModified Time None Recorded Concern Status LastModified by Organization Details LastModified Time None Recorded Advance Directives Directive None Recorded Payers Insurance Date Sequence Insurance Name Policy Number Policy Zelaya Covered Member ID Zelaya Member ID Guarantor Name 03/09/2025 1 [facility] (MEDICAID HMO) [id number] Rehan Zaragoza [id number] Rehan Zaragoza 03/15/2025 1 *SELF PAY* Cheryl Zaragoza 03/27/2025 1 [place] [facility] [place] [facility] Rehan Zaragoza [id number] Rehan Zaragoza 09/02/2025 1 [facility] (MEDICAID HMO) [id number] Rehan Zaragoza [id number] Rehan Zaragoza Notes Date Note Type Note Provider Name and Address Organization Details Recorded Time 08/21/2024 text/html Patient presents for Nexplanon removal and STD testing. Does not desire other form of control at this point. RHINA DEVRIES MD [address], [place], [address], [facility] 08/21/2024 16:46:28 07/10/2025 text/html 19yo [id number] today for ED f/u. She went to the ED for pelvic pain on 07/02. (+) chlamydia and started on doxycyline (has 2 days left). Noted to have a 3.6cm right ovarian cyst per pt via pelvic u/s. Symptoms have been improving.Her partner has started treatmentDenies abnormal vaginal discharge, odors, itching, irritationNeg n/v/fneg flu-like symptoms SOFÍA Renee [address], [place], [address], [facility] 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 Denies tobacco/EtOH/illicit s. RHINA DEVRIES MD [address], [place], [address], [facility] 09/03/2025 10:31:02 OBGyn Episode Ob Episode Information Episode Created Date Number of Fetuses Patient Bloodtype Patient rh Status Prepregnancy Weight lbs Domestic Partner Domestic Partner Phone Father Name Tool Maker Bench Status 11/30/19 24 1 CLOSED Fetus Data First Name Last Name Admitted to NICU Weight (g) Sex Living Outcome Pediatric Complications Fetus ID Race Codes Race Delivery Type 2806.37 3704 M Full Term [id number] Primary Mazin Calculation Initial Mazin Date Initial Exam Date Initial Exam Provider Initial Ultrasound Date Last Menstrual Period Date Ultra Sound Weeks Gestation 0 Eighteen To Twenty Week Mazin Update Ultra Sound Date Fundal Height At Umbil Quickening Date Ultra Sound Latest Weeks Gestation Final Mazin Confirmed By Final Mazin Confirmed Date Final Mazin Date Ultra Sound Latest Days Gestation 0 0 Menstrual History Last Menstrual Date Menses Monthly On Bcp Conception Prior Menses Frequency Hcg Plus Date Menarche Onset Age Delivery Information Delivery Date Delivery Type Labor Anesthesia Weeks Gestation Incision Type Labor Labor Length Hrs Delivered By Post Complications Tubal Sterilization Discharge Date Comments 9 39 Garrett Discharge Information Feeding Method Contraceptive Method Maternal HG B and HCT Levels
--- OUTSIDE RECORDS SUMMARY | 2025-09-05 22:35 | XMS_ITS | Clinical Summary ---
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 Name Role Phone Floridalma Mclean MD Primary Care Provider [phone] Allergies No known active allergies Encounters Date Type Department Care Team Description 07/02/2025 7:18 AM CDT - 07/02/2025 3:26 PM CDT Emergency [facility] Emergency Department [address] [place] [address] Kashmir Guaman MD Abdominal pain, generalized (Primary Dx); Pelvic pain; Chlamydia; Cyst of right ovary Discharge Disposition: Discharge to home or self care from Last 3 Months Social History Tobacco Use Types Packs/Day Years Used Date Smoking Tobacco: Never Assessed Personal Safety Answer Date Recorded Have you ever been in or are you currently in a harmful physical or emotional relationship or is someone making you feel afraid or unsafe? 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 Gender Identity Not on file Sexual Orientation Not on file Last Filed Vital Signs Vital Sign Reading Time Taken Comments Blood Pressure 158/107 07/02/2025 6:49 AM CDT Pulse 91 07/02/2025 6:49 AM CDT Temperature 36.9 C (98.5 F) 07/02/2025 6:49 AM CDT Respiratory Rate 15 07/02/2025 6:49 AM CDT Oxygen Saturation 99% 07/02/2025 6:49 AM CDT Inhaled Oxygen Concentration - - Weight - - Height - - Body Mass Index - - Plan of Treatment Health Maintenance Due Date Last Done Comments Cervical Cancer Screening 2003 Depression Screening 2003 Hepatitis C Screening 2003 DTaP/Tdap/Td Vaccine (1 - Tdap) 2014 Varicella Vaccines (1 of 2 - 13+ 2-dose series) 2016 HPV Vaccines (1 - 3-dose series) 2018 Meningococcal B Vaccine (1 o f 2 - Standard) 2019 Hepatitis B Screening 2021 Regular Well Visit/Exam 18-64 2021 Influenza Vaccine (#1) 2025 Meningococcal Vaccine Aged Out No haven kevin eligible based on patient's age to complete this topic Pneumococcal vaccine <65 Aged Out No longer eligible based on patient's age to complete this topic Procedures Procedure Name Priority Date/Time Associated Diagnosis Comments POCT RAPID HIV ANTIBODY COMMUNITY SCREENING-LEO ELIGIBLE Routine 07/02/2025 10:[address] ABDOMEN PELVIS W CONTRAST ED 07/02/2025 10:24 AM CDT EGFR STAT 07/02/2025 7:49 AM CDT DIFFERENTIAL AUTO STAT 07/02/2025 7:4 9 AM CDT URINALYSIS AND REFLEX TO MICROSCOPIC STAT 07/02/2025 7:49 AM CDT LIPASE STAT 07/02/2025 7:49 AM CDT COMPREHENSIVE METABOLIC PANEL STAT 07/02/2025 7:49 AM CDT CBC WITH AUTO DIFFERENTIAL STAT 07/02/2025 7:49 AM CDT TRICHOMONAS VAGINALIS PCR Routine 07/02/2025 7:49 AM CDT N. GONORRHOEAE/C. TRACHOMATIS AMPLIFICATION STAT 07/02/2025 7:49 AM CDT POCT HCG, URINE Routine 07/02/2025 7:40 AM CDT from Last 3 Months Results * POCT Rapid HIV Antibody Community Screening-Leo Eligible (07/02/2025 10:58 AM CDT) Rapid HIV, POC Negative Negative Lot Number [id number] QC Control Line Acceptable Blood 07/02/2025 10:5 8 AM CDT us Kashmir Guaman MD POINT OF CARE TEST ORDERAB LES Final Result * CT Abdomen Pelvis W Contrast (07/02/2025 10:24 AM CDT) Anatomical Region Laterality Modality Body N/A Computed Tomogra phy 07/02/2025 10:3 8 AM CDT Impressions 07/02/2025 4:16 PM CDT Right ovarian cyst measures 3.6 x 5.1 cm with peripheral enhancing component. Consider further evaluation by dedicated ultrasound. Dictated by: Cyndee Burns M.D. The radiology attending physician has personally reviewed this study, and had reviewed and/or edited this written report and agrees with it. Electronically signed by: Jermaine Frederick M.D. Narrative 07/02/2025 4:16 PM CDT EXAMINATION: CT of the abdomen and pelvis with intravenous contrast HISTORY: Diffuse abdominal pain. Increased vascular bleeding during periods. TECHNIQUE: Computed tomography of the chest, abdomen and pelvis was performed with intravenous contrast according to standard protocol. A total of 92 mL of Optiray 350 intravenous contrast was administered. COMPARISON: None available. FINDINGS: Bibasilar atelectasis. No pleural effusion. Normal heart size. No pericardial effusion. The liver, gallbladder, adrenals and spleen are normal. The pancreas is normal. The kidneys and bladder are normal. Right ovarian cyst measures 3.6 x 5.1 cm with peripheral enhancing component. Trace pelvic free fluid likely reactive.. No abnormally dilated or thickened loop of bowel. Bones are unremarkable for age. There is atherosclerotic disease of the aorta. There is no lymphadenopathy. No pneumoperitoneum. No concerning osseous lesions. Small fat-containing umbilical hernia. Procedure Note Jermaine Frederick MD - 07/02/2025 EXAMINATION: CT of the abdomen and pelvis with intravenous contrast HISTORY: Diffuse abdominal pain. Increased vascular bleeding during periods. TECHNIQUE: Computed tomography of the chest, abdomen and pelvis was performed with intravenous contrast according to standard protocol. A total of 92 mL of Optiray 350 intravenous contrast was administered. COMPARISON: None available. FINDINGS: Bibasilar atelectasis. No pleural effusion. Normal heart size. No pericardial effusion. The liver, gallbladder, adrenals and spleen are normal. The pancreas is normal. The kidneys and bladder are normal. Right ovarian cyst measures 3.6 x 5.1 cm with peripheral enhancing component. Trace pelvic free fluid likely reactive.. No abnormally dilated or thickened loop of bowel. Bones are unremarkable for age. There is atherosclerotic disease of the aorta. There is no lymphadenopathy. No pneumoperitoneum. No concerning osseous lesions. Small fat-containing umbilical hernia. IMPRESSION: Right ovarian cyst measures 3.6 x 5.1 cm with peripheral enhancing component. Consider further evaluation by dedicated ultrasound. Dictated by: Cyndee Burns M.D. The radiology attending physician has personally reviewed this study, and had reviewed and/or edited this written report and agrees with it. Electronically signed by: Jermaine Frederick M.D. [facility] Anahi ABBOTT IM CT PROCEDURES Final Result * (ABNORMAL) N. gonorrhoeae/C. trachomatis Amplification Urine (07/02/2025 7:49 AM CDT) C. trachomatis Detected(A) Not Detected [facility] N. gonorrhoeae Not Detected Not Detected [facility] Comment: Interpretive Data This assay detects Chlamydia trachomatis and Neisseria gonorrhoeae by nucleic acid amplification testing (NAAT). This assay has been cleared by the [place] Food and Drug administration. The performance characteristics of this test have been verified by the [facility] Molecular Infectious Disease laboratory. The performance characteristics of this test have not been evaluated in individuals less than 14 years of age. Current Interpretive Data last revised 2023. Urine (None) 07/02/2025 7:49 AM CDT 07/02/2025 7:57 AM CDT Ravin Christian MD LAB MICROBIOLOGY - GENERAL ORDER OSMANI Final Result Performing Organization Address [facility] Co de Phone Number [facility] [place] [address] [facility] * Trichomonas vaginalis PCR Urine (07/02/2025 7:49 AM CDT) Pathologist [facility] Trichomonas DNA Not Detected Not Detected [facility] Urine 07/02/2025 7:49 AM CDT 07/02/2025 7:57 AM CDT Narrative [facility] - 07/02/2025 9:38 AM CDT Interpretive Data: This assay detects Trichomonas vaginalis by nucleic acid amplification testing (NAAT). This assay has been cleared by the [place] Food and Drug administration. The performance characteristics of this test have been verified by the [facility] Molecular Infectious Disease laboratory. Excess blood in specimens may be inhibitory and result in false negative results. The performance of this test has not been evaluated in women or individuals less than 18 years of age. Ravin Christian MD LAB MICROBIOLOGY - GENERAL ORDER OSMANI Final Result Performing Organization Address [facility] [place] [address] [facility] * eGFR (07/02/2025 7:49 AM CDT) [facility] eGFR >90 >=60 mL/min/1. 73 m2 Comment: Interpretive Data Reference Interval Normal >/= 90 mL/min/1.73m2 Mildly decreased* 60 - 89 mL/min/1.73m2 Mildly to moderately decreased 45 - 59 mL/min/1.73m2 Moderately to severely decreased 30 - 44 mL/min/1.73m2 Severely decreased 15 - 29 mL/min/1.73m2 Kidney Failure < 15 mL/min/1.73m2 *Relative to young adult level Estimated glomerular filtration rate is determined by the 2021 CKD-EPI equation recommended by the National Kidney Foundation (A Unifying Approach to GFR Estimation: Recommendations of the NKF-ASK Task Force on Reassessing the Inclusion of Race in Diagnosing Kidney Disease, JASN 202). The CKD-EPI equation should not be used for patients with unstable renal function and has not been validated in children and those over 70. Current interpretive data was last reviewed 2021. Blood 07/02/2025 7:49 AM CDT 07/02/2025 8:01 AM CDT us Myla Littlejohn MD LAB BLOOD ORDERABLES F inal Result [facility] Department [place] [address] * Differential, auto (07/02/2025 7:49 AM CDT) Neutrophil abs 4.57 1.50 - 6.50 K/cumm Imm gran abs 0.02 0.00 - 0.10 K/cumm [facility] Lymphocyte abs 1.74 0.80 - 3.30 K/cumm [facility] Monocyte abs 0.51 0.20 - 0.80 K/cumm [facility] Eosinophil abs 0.03 0.00 - 0.50 K/cumm [facility] Basophil abs 0.03 0.00 - 0.10 K/cumm [facility] Neutrophil pct 66.3 % [facility] Comment: Interpretive Data Percent cell count reference ranges are not reported, since discordance with absolute values may lead to misinterpretation of CBC data. Current Interpretive Data was last revised on 2018. Imm gran pct 0.3 % [facility] Comment: Interpretive Data Percent cell count reference ranges are not reported, since discordance with absolute values may lead to misinterpretation of CBC data. Current Interpretive Data was last revised on 2018. Lymphocyte pct 25.2 % [facility] Comment: Interpretive Data Percent cell count reference ranges are not reported, since discordance with absolute values may lead to misinterpretation of CBC data. Current Interpretive Data was last revised on 2018. Monocyte pct 7.4 % [facility] Comment: Interpretive Data Percent cell count reference ranges are not reported, since discordance with absolute values may lead to misinterpretation of CBC data. Current Interpretive Data was last revised on 2018. Eosinophil pct 0.4 % [facility] Comment: Interpretive Data Percent cell count reference ranges are not reported, since discordance with absolute values may lead to misinterpretation of CBC data. Current Interpretive Data was last revised on 2018. Basophil pct 0.4 % [facility] Comment: Interpretive Data Percent cell count reference ranges are not reported, since discordance with absolute values may lead to misinterpretation of CBC data. Current Interpretive Data was last revised on 2018. Blood 07/02/2025 7:49 AM CDT 07/02/2025 8:01 AM CDT us Myla Littlejohn MD LAB BLOOD ORDERABLES F inal Result [facility] Department [place] [address] * Urinalysis reflex to microscopic (07/02/2025 7:49 AM CDT) Color, ur Straw Yellow Clarity, ur Clear Clear [facility] Specific gravity, ur 1.030 1.003 - 1.030 [facility] pH, urine 6.0 [facility] Comment: Interpretive Data U rine pH is affected by diet, medications, systemic acid-base disturbances, and renal tubular function. pH may affect urinary stone formation. For example, urine pH below 6.0 may help reduce the tendency for calcium phosphate stones and pH greater than 6.0 may reduce the tendency for uric acid stone formation. Source: [employer] Current Interpretive Data was last revised on 2017 Protein, ur ql Trace Negative [facility] Glucose, ur ql Negative Negative [facility] Ketones, ur Negative Negative [facility] Bilirubin, ur Negative Negative [facility] Blood, ur Negative Negative [facility] Urobilinogen, ur <2.0 <2.0 mg/dL [facility] Nitrite, ur Negative Negative [facility] Leukocyte esterase, ur Negative Negative [facility] UA reflex comment Reflex conditions for microscopic UA not met. [facility] Urine 07/02/2025 7:49 AM CDT 07/02/2025 7:55 AM CDT Kashmir Guaman MD LAB URINE ORDERABLES Final Result Performing Organization Address [facility]/ZIP Co de Phone Number [facility] [place] [address] * (ABNORMAL) CBC with auto differential (07/02/2025 7:49 AM CDT) WBC 6.90 3.80 - 9.90 K/cumm Hgb 13.3 11.9 - 15.5 g/dL [facility] Hct 42.5 35.6 - 45.5 % [facility] Plt 296 150 - 400 K/cumm [facility] MPV 11.2 9.1 - 12.3 fL [facility] RBC 5.21(H) 3.90 - 5.20 M/cumm [facility] MCV 81.6 81.3 - 96.4 fL [facility] MCH 25.5(L) 27.1 - 33.3 pg [facility] MCHC 31.3(L) 32.3 - 35.7 g/dL [facility] RDW CV 13.5 11.1 - 14.9 % [facility] RDW SD 40.0 35.7 - 48.1 fL [facility] NRBC abs 0.00 0.00 - 0.01 K/cumm [facility] Blood Venous blood specimen / Unknown 07/02/2025 7:49 AM CDT 07/02/2025 8:01 AM CDT Kashmir Guaman MD LAB BLOOD ORDERABLES Final Result Performing Organization Address City/[facility]/ZIP Co de Phone Number [facility] Department [place] [address] * Lipase (07/02/2025 7:49 AM CDT) Lipase 26 10 - 99 Units/L Blood Venous blood specimen / Unknown 07/02/2025 7:49 AM CDT 07/02/2025 8:01 AM CDT Kashmir Guaman MD LAB BLOOD ORDERABLES Final Result [facility] Department [place] [address] * Comprehensive metabolic panel (07/02/2025 7:49 AM CDT) Sodium 141 135 - 145 mmol/L Potassium, pl 4.1 3.3 - 4.9 mmol/L [facility] Chloride 109 97 - 110 mmol/L [facility] CO2 24 22 - 32 mmol/L [facility] Anion gap 8 2 - 15 mmol/L [facility] BUN 12 6 - 25 mg/dL [facility] Creatinine 0.68 0.60 - 1.10 mg/dL [facility] Glucose 91 70 - 199 mg/dL [facility] Comment: Interpretive Data Fasting glucose >/= 126 mg/dl is diagnostic for diabetes. Fasting is defined as no caloric intake for at least 8 hours. Fasting glucose between 100 mg/dl to 125 mg/dl is diagnostic of prediabetes. In a patient with classic symptoms of hyperglycemia or hyperglycemic crisis, a random glucose >/= 200 mg/dl is diagnostic for diabetes. In the absence of unequivocal hyperglycemia, results should be confirmed by repeat testing. The classification and Diagnosis of Diabetes Diabetes Care 202; 46: S19-S40. Current interpretive data was last revised 2022. Calcium 9.0 8.5 - 10.3 mg/dL [facility] Bilirubin, total 0.4 0.1 - 1.2 mg/dL [facility] Protein, pl 7.7 6.5 - 8.5 g/dL [facility] Albumin 4.1 3.5 - 5.0 g/dL [facility] Alk phos 89 40 - 130 Units/L [facility] ALT 16 7 - 45 Units/L [facility] AST 15 10 - 45 Units/L [facility] Blood 07/02/2025 7:49 AM CDT 07/02/2025 8:01 AM CDT Kashmir Guaman MD LAB BLOOD ORDERABLES Final Result [facility] Department [place] [address] * POCT hCG, urine (07/02/2025 7:40 AM CDT) HCG, ur, POC Negative Negative Lot Number [id number] QC Backgroud Clear Acceptable QC Control Line Acceptable Urine 07/02/2025 7:40 AM CDT us Kashmir Guaman MD POINT OF CARE TEST ORDERAB LES Final Result from Last 3 Months Insurance [facility] Care Teams 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
--- OUTSIDE RECORDS SUMMARY | 2025-09-05 22:35 | XMS_ITS | Continuity of Care Document ---
Author Organization [facility] [place] Address [address] [place] [address] Assessment No assessment recorded. Plan of Treatment [...] PCR Negati ve negati ve Not Available [facility] (Lab) [address], [place], [address], 09/04/2025 16:25:01 09/03/20 25 09/03/2025 CT/GC AND TRICH OMONA S VAGIN [place] (RRNA ), URINE neisseria gonorrhoeae, PCR Negati ve negati ve Not Available [facility] (Lab) [address], [place], [address], 09/04/2025 16:25:01 09/03/20 25 09/03/2025 CT/GC AND TRICH OMONA S VAGIN [place] (RRNA ), URINE trichomonas vaginalis ribosomal RNA (rrna) Negati ve negati ve Not Available [facility] (Lab) [address], [place], [address], 09/04/2025 16:25:01 09/03/20 25 09/03/2025 imagi ng/di agnos tic resul t No observ ation record ed. MARLEN Mcgovern [address], [place], [address], 09/03/2025 11:40:48 Result Notes None recorded. Procedures Surgical History Date Name Laterality Status Provider Name and Address Organization Details Recorded Time 08/21/20 24 Nexplanon Removal completed RHINA DEVRIES MD [address], [place], [address], [facility] 08/21/2024 16:45:12 11/30/19 24 Control Implant Replacement completed Merry Lira [facility]- [address], [place], [address], [facility] 11/30/2023 14:58:01 08/29/20 19 Caesarean Section completed Awa Bennett [facility] 11/30/2023 14:37:15 Imaging Results None recorded. [...] oral route with meal(s) for 7 days. 04/18 /2024 completed Not Available Not Available Not Available [...] Updated DateTime 09/03/2025 157.48 cm 44.4 kg/m2 912213.95 g 142/89 mm[Hg] GIANLUCA MCGRATH [facility] 09/03/2025 10:03:36 Social History Question Answer Notes LastModified by Organizat ion Details LastModified Time Tobacco Smoking Status Never Smoker Awa obrien, [facility] 11/30/2023 14:36:33 Are You Blind Or [...] Or The Highest Degree You Have Received? [id number] Information not available 11/30/2023 Are There Any [...] anxious, or unable to sleep at night)? [id number] Information not available 11/30/2023 Family History Relationship [...] ) N Other Y Blood Transfusion N Breast Cancer N Drug/Latex Allergies/Reactions N Dermatologic Disorders N Lung Disease N Defects or Inherited Disease N Breast Problem N Gestational Diabetes N Hematologic disorders N Anesthesia Complications N History of STI Y Deep Vein Thrombosis N Polycystic ovary syndrome N Anxiety Disorder N Autoimmune disease N Arthritis N Polyps N Infertility N Acid Reflux (GERD) N History of abnormal pap N Cancer N Varicosities N Stroke N Neurologic/Epilepsy N Endometriosis N High Cholesterol N Fibromyalgia N Headaches N Kidney Disease N Heart Problems N Thyroid Problems N Kidney or Bladder Problems N GI Problems N Eating Disorder [...] ICD10 Code Diagnosis IMO Codes Diagnosis Note [id number] MD Jigna CONNELLY [address] [address] 09/03/2025 09:33:21 09/03/2025 10:00:12 [id number] RHINA DEVRIES MD [place] [address] [address] 09/03/2025 09:34:04 09/03/2025 10:49:04 test positive [id number] Z32.01 [id number] 1. Exam today within normal limits.2. Ultrasound [...] at 10 weeks. 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 RHINA DEVRIES MD [address], [place], [address], [place] [facility] 09/03/2025 10:31:02 OBGyn Episode No OBEpisode recorded.
[2025-09-05 22:57] LABS: Strep Group A RT-PCR NOT DETECTED (Negative)
[2025-09-05 23:08] VITALS: BP 126/89; PULSE 95; RESP 16; TEMP 37.3; O2SAT 100
== END 2025-09-05 23:15 | disposition home or self-care (01) ==
PROVIDERS: Emergency Medicine; Emergency Provider Registered Nurse
DX: J06.9 Acute upper respiratory infection, unspecified (principal); Z20.822 Contact with and (suspected) exposure to COVID-19
CPT/HCPCS: 87637; 87651; 99283; A9270

== ENCOUNTER 2025-09-25 15:52 | Emergency (ER) | payer OTHER, SELFPAY ==
--- OUTSIDE RECORDS SUMMARY | 2025-09-25 15:54 | XMS_ITS | Continuity of Care Document ---
Author Organization [facility] [place] Address [address] [place] [address] Assessment No assessment recorded. Plan of Treatment [...] (ccf) DNA, materna l serum 2024 025 [facility], [address], [place], [address], 09/18/2025 15:41:06 HbA1c (hemogl obin A1c), blood 2024 025 [facility] (Lab), [address], [place], [address], 09/14/2025 17:31:08 type + screen, blood 2024 025 [facility] (Lab), [address], [place], [address], 09/14/2025 17:31:06 rubella igg Ab, titer, serum 2024 025 [facility] (Lab), [address], [place], [address], 09/14/2025 17:31:07 CBC w/ auto diff 2024 025 [facility] (Lab), [address], [place], [address], 09/14/2025 17:31:05 hepatit is C virus Ab, serum 2024 [facility] (Lab), [address], [place], [address], 09/14/2025 17:31:08 HBsAg (hepati tis B surface Ag), serum 2024 025 [facility] (Lab), [address], [place], [address], 09/14/2025 17:31:06 RPR (rapid plasma reagin) , serum 2024 025 [facility] (Lab), [address], [place], [address], 09/14/2025 17:31:08 HIV 1+2 AB + HIV 1 p24 Ag, qualita tive immunoa ssay, serum 2024 025 [facility] (Lab), [address], [place], [address], 09/14/2025 17:31:07 genetic screen, unspeci fied specime n 2024 025 [facility], [address], [place], [address], 09/24/2025 18:11:38 Referral None recorde d. Procedures None recorde d. Surgeries None recorde d. Imaging None recorde d. Medication Orders None recorde d. Patient TargetsNo targets recorded. Patient InstructionsNo instructions recorded. Reason for Referral None Reported. Results Created Date Observation Date Name Description Value Unit Range Abnormal Flag Note LastModifiedBy Organization Detail LastModifiedTime 09/18/20 25 09/18/2025 [UNIT Y] ANEUP LOIDY NIPT fraction 2.2% normal Not Available [facility] [address], [place], [address], 09/18/2025 15:41:06 09/18/20 25 09/18/2025 [UNIT Y] ANEUP LOIDY NIPT 22Q11.2 microdeletio n LOW RISK <1 in 10,000 normal Not Available [facility] [address], [place], [address], 09/18/2025 15:41:06 09/18/20 25 09/18/2025 [UNIT Y] ANEUP LOIDY NIPT sex chromosome aneuploidy NOT DETECT ED normal Not Available [facility] [address], [place], [address], 09/18/2025 15:41:06 09/18/20 25 09/18/2025 [UNIT Y] ANEUP LOIDY NIPT monosomy X LOW RISK <1 in 10,000 normal Not Available [facility] [address], [place], [address], 09/18/2025 15:41:06 09/18/20 25 09/18/2025 [UNIT Y] ANEUP LOIDY NIPT trisomy 13 LOW RISK <1 in 10,000 normal Not Available [facility] [address], [place], [address], 09/18/2025 15:41:06 09/18/20 25 09/18/2025 [UNIT Y] ANEUP LOIDY NIPT trisomy 18 LOW RISK <1 in 10,000 normal Not Available [facility] [address], [place], [address], 09/18/2025 15:41:06 09/18/20 25 09/18/2025 [UNIT Y] ANEUP LOIDY NIPT trisomy 21 LOW RISK <1 in 10,000 normal Not Available [facility] [address], [place], [address], 09/18/2025 15:41:06 09/18/20 25 09/18/2025 [UNIT Y] ANEUP LOIDY NIPT sex MALE normal Not Available [facility] [address], [place], [address], 09/18/2025 15:41:06 09/18/20 25 09/18/2025 [UNIT Y] ANEUP LOIDY NIPT gestation SINGLE TON normal Not Available [facility] [address], [place], [address], 09/18/2025 15:41:06 09/18/20 25 09/18/2025 [UNIT Y] ANEUP LOIDY NIPT for detailed report, see pdf See PDF normal Not Available [facility] [address], [place], [address], 09/18/2025 15:41:06 09/03/20 25 09/03/2025 CT/GC AND TRICH OMONA S VAGIN [place] (RRNA ), URINE chlamydia trachomatis, PCR Negati ve negati ve Not Available [facility] (Lab) [address], [place], [address], 09/04/2025 16:25:01 09/03/20 25 09/03/2025 CT/GC AND TRICH OMONA S VAGIN [place] (RRNA ), URINE neisseria gonorrhoeae, PCR Negati ve negati ve Not Available [facility] (Lab) [address], [place], [address], 09/04/2025 16:25:01 09/03/20 25 09/03/2025 CT/GC AND TRICH OMONA S VAGIN [place] (RRNA ), URINE trichomonas vaginalis ribosomal RNA (rrna) Negati ve negati ve Not Available [facility] (Lab) [address], [place], [address], 09/04/2025 16:25:01 09/13/20 25 09/13/2025 CBC W/DIF F WBC 7.5 10'3/ uL 3.5-10 .5 Not Available [facility] (Lab) [address], [place], [address], 09/14/2025 17:31:05 09/13/20 25 09/13/2025 CBC W/DIF F RBC 5.07 10'6/ uL (based on docume nted legal sex) 3.80-5 .20 Not Available [facility] (Lab) [address], [place], [address], 09/14/2025 17:31:05 09/13/20 25 09/13/2025 CBC W/DIF F HGB 13.2 g/dL (based on docume nted legal sex) 11.6-1 5.4 Not Available [facility] (Lab) [address], [place], [address], 09/14/2025 17:31:05 09/13/20 25 09/13/2025 CBC W/DIF F HCT 42.4 % (based on docume nted legal sex) 34.0-4 5.0 Not Available [facility] (Lab) [address], [place], [address], 09/14/2025 17:31:05 09/13/20 25 09/13/2025 CBC W/DIF F MCV 83.6 fL 80.0-9 9.0 Not Available [facility] (Lab) [address], [place], [address], 09/14/2025 17:31:05 09/13/20 25 09/13/2025 CBC W/DIF F MCH 26.0 pg 27.0-3 4.0 low Not Available [facility] (Lab) [address], [place], [address], 09/14/2025 17:31:05 09/13/20 25 09/13/2025 CBC W/DIF F MCHC 31.1 g/dL 32.0-3 5.5 low Not Available [facility] (Lab) [address], [place], [address], 09/14/2025 17:31:05 09/13/20 25 09/13/2025 CBC W/DIF F RDW 13.2 % 11.0-1 5.0 Not Available [facility] (Lab) [address], [place], [address], 09/14/2025 17:31:05 09/13/20 25 09/13/2025 CBC W/DIF F plt 389 10'3/ uL 150-40 0 Not Available [facility] (Lab) [address], [place], [address], 09/14/2025 17:31:05 09/13/20 25 09/13/2025 CBC W/DIF F MPV 10.9 fL 8.8-12 .1 Not Available [facility] (Lab) [address], [place], [address], 09/14/2025 17:31:05 09/13/20 25 09/13/2025 CBC W/DIF F NRBC's 0.0 % 0.0 Not Available [facility] (Lab) [address], [place], [address], 09/14/2025 17:31:05 09/13/20 25 09/13/2025 CBC W/DIF F absolute NRBCs 0.0 10'3/ uL no refere nce range establ ished Not Available [facility] (Lab) [address], [place], [address], 09/14/2025 17:31:05 09/13/20 25 09/13/2025 CBC W/DIF F neutrophils 68.2 % 34.0-7 3.0 Not Available [facility] (Lab) [address] [place], [address], 09/14/2025 17:31:05 09/13/20 25 09/13/2025 CBC W/DIF F lymphocytes 26.7 % 15.0-5 0.0 Not Available [facility] (Lab) [address], [place], [address], 09/14/2025 17:31:05 09/13/20 25 09/13/2025 CBC W/DIF F monocytes 3.6 % 1.0-15 .0 Not Available [facility] (Lab) [address], [place], [address], 09/14/2025 17:31:05 09/13/20 25 09/13/2025 CBC W/DIF F eosinophils 0.8 % 0.0-8. 0 Not Available [facility] (Lab) [address], [place], [address], 09/14/2025 17:31:05 09/13/20 25 09/13/2025 CBC W/DIF F basophils 0.3 % 0.0-2. 0 Not Available [facility] (Lab) [address], [place], [address], 09/14/2025 17:31:05 09/13/2009/13/2025 CBC W/DIF F immature granulocytes 0.4 % no define d refere nce range Immat ure Granu locyt es (IG) repre sents autom ated enume ratio n of Metam yeloc ytes, Myelo cytes and Promy elocy ryder when IG is < 5%. Blast s are not inclu ded in IG and repor shefali separ ately if prese nt. Not Available [facility] (Lab) [address], [place], [address], 09/14/2025 17:31:05 09/13/20 25 09/13/2025 CBC W/DIF F absolute neutrophils 5.1 10'3/ uL 1.5-8. 0 Not Available [facility] (Lab) [address], [place], [address], 09/14/2025 17:31:05 09/13/20 25 09/13/2025 CBC W/DIF F absolute lymphocytes 2.0 10'3/ uL 1.0-4. 0 Not Available [facility] (Lab) [address], [place], [address], 09/14/2025 17:31:05 09/13/20 25 09/13/2025 CBC W/DIF F absolute monocytes 0.3 10'3/ uL 0.2-1. 0 Not Available [facility] (Lab) [address], [place], [address], 09/14/2025 17:31:05 09/13/20 25 09/13/2025 CBC W/DIF F absolute eosinophils 0.1 10'3/ uL 0.0-0. 6 Not Available [facility] (Lab) [address], [place], [address], 09/14/2025 17:31:05 09/13/20 25 09/13/2025 CBC W/DIF F absolute basophils 0.0 10'3/ uL 0.0-0. 3 Not Available [facility] (Lab) [address], [place], [address], 09/14/2025 17:31:05 09/13/20 25 09/13/2025 CBC W/DIF F absolute immature granulocytes 0.0 10'3/ uL 0.00-0 .10 Refer ence range s for nonbi nary/ inter sex or unspe cifie d gende r patie nts have not been estab lishe d. Pleas e refer to the follo wing table for range s estab lishe d for cisge nder patie nts and evalu ate in the clini eric yuni xt of the indiv idual patie nt: https :[email or web address] [email or web address] book. nm.or g/gen derx Not Available [facility] (Lab) [address], [place], [address], 09/14/2025 17:31:05 09/13/20 25 09/13/2025 TYPE/ RH/SC REEN ABO/Rh type O POS Not Available [facility] (Lab) [address], [place], [address], 09/14/2025 17:31:06 09/13/20 25 09/13/2025 TYPE/ RH/SC REEN antibody screen NEG Not Available [facility] (Lab) [address], [place], [address], 09/14/2025 17:31:06 09/13/20 25 09/13/2025 TYPE/ RH/SC REEN exp date 2024 23:59 Not Available [facility] (Lab) [address], [place], [address], 09/14/2025 17:31:06 09/13/20 25 09/13/2025 HEPAT ITIS B SURFA CE ANTIG EN hepatitis B surface antigen Non-re active non-re active The test metho d is elect néstor milum inesc ence immun oassa y perfo rmed on the Néstor Naun e801. Value s obtai virgilio with diffe rent assay metho ds by other labor atori es canno t be used inter sadler eably . Not Available [facility] (Lab) [address], [place], [address], 09/14/2025 17:31:06 09/13/20 25 09/13/2025 HIV 1/2 ANTIG EN/AN TIBOD Y, REFLE X CONFI RMATI ON HIV antigen/anti body Nonrea ctive nonrea ctive HIV-1 antig en and HIV-1 /HIV- 2 antib odies were not detec shefali. No labor atory evide nce of HIV infec tion. Not Available [facility] (Lab) [address], [place], [address], 09/14/2025 17:31:07 09/13/20 25 09/13/2025 RUBEL LA IGG ANTIB ALBIN, QUANT rubella antibodies, IgG Reacti ve reacti ve Not Available [facility] (Lab) [address], [place], [address], 09/14/2025 17:31:07 09/13/20 25 09/13/2025 RUBEL LA IGG ANTIB ALBIN, QUANT rubella antibodies, IgG quant 17.5 IU/mL >=10 Non-r eacti ve (Non- Immun e) <10 IU/mL React carol (Immu ne) > or = 10 IU/mL Not Available [facility] (Lab) [address], [place], [address], 09/14/2025 17:31:07 09/13/20 25 09/13/2025 HEMOG LOBIN A1C hemoglobin A1C 5.5 % 4.0-5. 6 The Ameri can Diabe ryder [employer] iatio n recom mends that a prima ry goal of thera py shoul d be a HBA1C of < 7% and that physi cians shoul d reeva luate the treat ment regim en in patie nts with HBA1C value s consi stent ly > 8%. <5.7% Neela l 5.7 - 6.4% Incre ased risk for diabe ryder >=6.5 % Diagn ostic of diabe ryder <7.0% Goal of thera py >8.0% Actio n sugge sted Not Available [facility] (Lab) [address], [place], [address], 09/14/2025 17:31:08 09/13/20 25 09/13/2025 HEPAT ITIS C ANTIB ALBIN SCREE N, REFLE X TO CONFI RMATI ON hepatitis C antibody Non-re active non-re active Antib odies to HCV Not Detec shefali, does not exclu de the possi bilit y of expos ure to HCV. The test metho d is elect néstor milum inesc ence immun oassa y perfo rmed on the Néstor Naun e801. Value s obtai virgilio with diffe rent assay metho ds by other labor atori es canno t be used inter sadler eably . Not Available [facility] (Lab) [address], [place], [address], 09/14/2025 17:31:08 09/13/20 25 09/13/2025 RPR SCREE N, REFLE X TITER /CONF IRMAT ION RPR qualitative Nonrea ctive nonrea ctive Not Available [facility] (Lab) [address], [place], [address], 09/14/2025 17:31:08 09/03/20 25 09/03/2025 imagi ng/di agnos tic resul t No observ ation record ed. MARLEN Mcgovern [address], [place], [address], 09/03/2025 11:40:48 Result Notes None recorded. Procedures Surgical History Date Name Laterality Status Provider Name and Address Organization Details Recorded Time 08/21/20 24 Nexplanon Removal completed RHINA DEVRIES MD [address], [place], [address], [facility] 08/21/2024 16:45:12 11/30/19 24 Control Implant Replacement completed Merry Lira NAVIN- [address], [place], [address], [facility] 11/30/2023 14:58:01 08/29/20 19 Caesarean Section completed Awa Bennett [facility] 11/30/2023 14:37:15 Imaging Results None recorded. [...] Updated DateTime 09/03/2025 157.48 cm 44.4 kg/m2 310751.95 g 142/89 mm[Hg] GIANLUCA MCGRATH [facility] 09/03/2025 10:03:36 Social History Question Answer Notes LastModified by Organizat ion Details LastModified Time Tobacco Smoking Status Never Smoker Awa obrien, [facility] 11/30/2023 14:36:33 Are You Blind Or [...] Or The Highest Degree You Have Received? [id number] Information not available 11/30/2023 Are There Any [...] anxious, or unable to sleep at night)? [id number] Information not available 11/30/2023 Family History Relationship [...] available 2023 14:36:22 Medical History Condition Response Other Y Blood Transfusion N Dermatologic Disorders N Gestational Diabetes N Anxiety Disorder N Autoimmune disease N Arthritis N Polyps N Infertility N Acid Reflux (GERD) N Cancer N Varicosities N Stroke N Neurologic/Epilepsy N Fibromyalgia N Headaches N Kidney Disease N Heart Problems N Kidney or Bladder Problems N Eating Disorder N Art (IVF or FET) N Hepatitis/Liver Disease N No Past Medical History N Urinary Tract Infection N Asthma N Trauma/Violence N Thrombophilias N Allergies (Food, seasonal, environmental ) N Breast Cancer N Drug/Latex Allergies/Reactions N Lung Disease N Defects or Inherited Disease N Breast Problem N Hematologic disorders N Anesthesia Complications N History of STI Y Deep Vein Thrombosis N Polycystic ovary syndrome N History of abnormal pap N Endometriosis N High Cholesterol N Thyroid Problems N GI Problems N Anemia N Psychiatric Illness N Ovarian Cancer N Diabetes N Pulmonary (TB, Asthma) N Eczema N Abuse/Domestic Violence N Depression/ depression N Heart Disease N Pre-Eclampsia N Hypertension N Osteoporosis N Gynecological History Statement/Question Response Flow Heavy [...] ICD10 Code Diagnosis IMO Codes Diagnosis Note [id number] MD Jigna CONNELLY [address] [facility] [place] [address] 09/03/2025 09:33:21 09/03/2025 10:00:12 [id number] MD Jigna CONNELLY [address] [place] [address] 09/03/2025 09:34:04 09/03/2025 10:49:04 test positive 398900881 Z32.01 [id number] 1. Exam today within normal limits.2. Ultrasound [...] at 10 weeks. 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 RHINA DEVRIES MD [address], [place], [address], [facility] 09/03/2025 10:31:02 OBGyn Episode No OBEpisode recorded.
--- OUTSIDE RECORDS SUMMARY | 2025-09-25 15:54 | XMS_ITS | Clinical Summary ---
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 Electronically signed by: Jermaine Frederick M.D. [facility] [place] [facility] CT PROCEDURES Final Result * (ABNORMAL) N. gonorrhoeae/C. trachomatis Amplification Urine (07/02/2025 7:49 AM CDT) C. trachomatis Detected(A) Not Detected [facility] N. gonorrhoeae Not Detected Not Detected MERON [facility] Comment: Interpretive Data This assay detects Chlamydia trachomatis and Neisseria gonorrhoeae by nucleic acid amplification testing (NAAT). This assay has been cleared by the [place] Food and Drug administration. The performance characteristics of this test have been verified by the [facility] Molecular Infectious Disease laboratory. The performance characteristics of this test have not been evaluated in individuals less than 14 years of age. Current Interpretive Data last revised 2023. Urine (None) 07/02/2025 7:49 AM CDT 07/02/2025 7:57 AM CDT Ravin Christian MD LAB MICROBIOLOGY - GENERAL ORDER OSMANI Final Result Performing Organization Address [facility] Co de Phone Number [facility] [place] [address] [facility] * Trichomonas vaginalis PCR Urine (07/02/2025 7:49 AM CDT) Pathologist [facility] Trichomonas DNA Not Detected Not Detected [facility] Urine 07/02/2025 7:49 AM CDT 07/02/2025 7:57 AM CDT Narrative [facility] - 07/02/2025 9:38 AM CDT Interpretive Data: This assay detects Trichomonas vaginalis by nucleic acid amplification testing (NAAT). This assay has been cleared by the [place] Food and Drug administration. The performance characteristics of this test have been verified by the [facility] Molecular Infectious Disease laboratory. Excess blood in specimens may be inhibitory and result in false negative results. The performance of this test has not been evaluated in women or individuals less than 18 years of age. Ravin Christian MD LAB MICROBIOLOGY - GENERAL ORDER OSMANI Final Result Performing Organization Address [facility] [place] [address] [facility] * eGFR (07/02/2025 7:49 AM CDT) [facility] eGFR >90 >=60 mL/min/1. 73 m2 [...] MD LAB BLOOD ORDERABLES F inal Result [facility] [address] [facility] Department [place] [address] * Differential, auto (07/02/2025 7:49 AM CDT) Neutrophil abs 4.57 1.50 - 6.50 K/cumm Imm gran abs 0.02 0.00 - 0.10 K/cumm [facility] Lymphocyte abs 1.74 0.80 - 3.30 K/cumm [facility] Monocyte abs 0.51 0.20 - 0.80 K/cumm [facility] Eosinophil abs 0.03 0.00 - 0.50 K/cumm [facility] Basophil abs 0.03 0.00 - 0.10 K/cumm [facility] Neutrophil pct 66.3 % [facility] Comment: Interpretive Data Percent cell count reference ranges are not reported, since discordance with absolute values may lead to misinterpretation of CBC data. Current Interpretive Data was last revised on 2018. Imm gran pct 0.3 % [facility] Comment: Interpretive Data Percent cell count reference ranges are not reported, since discordance with absolute values may lead to misinterpretation of CBC data. Current Interpretive Data was last revised on 2018. Lymphocyte pct 25.2 % [facility] Comment: Interpretive Data Percent cell count reference ranges are not reported, since discordance with absolute values may lead to misinterpretation of CBC data. Current Interpretive Data was last revised on 2018. Monocyte pct 7.4 % [facility] Comment: Interpretive Data Percent cell count reference ranges are not reported, since discordance with absolute values may lead to misinterpretation of CBC data. Current Interpretive Data was last revised on 2018. Eosinophil pct 0.4 % [facility] Comment: Interpretive Data Percent cell count reference ranges are not reported, since discordance with absolute values may lead to misinterpretation of CBC data. Current Interpretive Data was last revised on 2018. Basophil pct 0.4 % [facility] Comment: Interpretive Data Percent cell count reference ranges are not reported, since discordance with absolute values may lead to misinterpretation of CBC data. Current Interpretive Data was last revised on 2018. Blood 07/02/2025 7:49 AM CDT 07/02/2025 8:01 AM CDT us Myla Littlejohn MD LAB BLOOD ORDERABLES F inal Result [facility] [place] [address] * Urinalysis reflex to microscopic (07/02/2025 7:49 AM CDT) Color, ur Straw Yellow Clarity, ur Clear Clear [facility] Specific gravity, ur 1.030 1.003 - 1.030 [facility] pH, urine 6.0 [facility] Comment: Interpretive Data U rine pH is affected by diet, medications, systemic acid-base disturbances, and renal tubular function. pH may affect urinary stone formation. For example, urine pH below 6.0 may help reduce the tendency for calcium phosphate stones and pH greater than 6.0 may reduce the tendency for uric acid stone formation. Source: [employer] Current Interpretive Data was last revised on 2017 Protein, ur ql Trace Negative [facility] Glucose, ur ql Negative Negative [facility] Ketones, ur Negative Negative [facility] Bilirubin, ur Negative Negative [facility] Blood, ur Negative Negative [facility] Urobilinogen, ur <2.0 <2.0 mg/dL [facility] Nitrite, ur Negative Negative [facility] Leukocyte esterase, ur Negative Negative [facility] UA reflex comment Reflex conditions for microscopic UA not met. [facility] Urine 07/02/2025 7:49 AM CDT 07/02/2025 7:55 AM CDT Kashmir Guaman MD LAB URINE ORDERABLES Final Result Performing Organization Address [facility]/ZIP Co de Phone Number [facility] [place] [address] * (ABNORMAL) CBC with auto differential (07/02/2025 7:49 AM CDT) WBC 6.90 3.80 - 9.90 K/cumm Hgb 13.3 11.9 - 15.5 g/dL [facility] Hct 42.5 35.6 - 45.5 % [facility] Plt 296 150 - 400 K/cumm [facility] MPV 11.2 9.1 - 12.3 fL [facility] RBC 5.21(H) 3.90 - 5.20 M/cumm [facility] MCV 81.6 81.3 - 96.4 fL [facility] MCH 25.5(L) 27.1 - 33.3 pg [facility] MCHC 31.3(L) 32.3 - 35.7 g/dL [facility] RDW CV 13.5 11.1 - 14.9 % [facility] RDW SD 40.0 35.7 - 48.1 fL [facility] NRBC abs 0.00 0.00 - 0.01 K/cumm [facility] Blood Venous blood specimen / Unknown 07/02/2025 7:49 AM CDT 07/02/2025 8:01 AM CDT Kashmir Guaman MD LAB BLOOD ORDERABLES Final Result Performing Organization Address City/[facility]/ZIP Co de Phone Number [facility] Department [place] [address] * Lipase (07/02/2025 7:49 AM CDT) Lipase 26 10 - 99 Units/L Blood Venous blood specimen / Unknown 07/02/2025 7:49 AM CDT 07/02/2025 8:01 AM CDT Kashmir Guaman MD LAB BLOOD ORDERABLES Final Result [facility] [address] [facility] [place] [address] * Comprehensive metabolic panel (07/02/2025 7:49 AM CDT) Sodium 141 135 - 145 mmol/L Potassium, pl 4.1 3.3 - 4.9 mmol/L [facility] Chloride 109 97 - 110 mmol/L [facility] CO2 24 22 - 32 mmol/L [facility] Anion gap 8 2 - 15 mmol/L [facility] BUN 12 6 - 25 mg/dL [facility] Creatinine 0.68 0.60 - 1.10 mg/dL [facility] Glucose 91 70 - 199 mg/dL [facility] Comment: Interpretive Data Fasting glucose >/= [...] 2022. Calcium 9.0 8.5 - 10.3 mg/dL [facility] Bilirubin, total 0.4 0.1 - 1.2 mg/dL [facility] Protein, pl 7.7 6.5 - 8.5 g/dL [facility] Albumin 4.1 3.5 - 5.0 g/dL [facility] Alk phos 89 40 - 130 Units/L [facility] ALT 16 7 - 45 Units/L [facility] AST 15 10 - 45 Units/L [facility] Blood 07/02/2025 7:49 AM CDT 07/02/2025 8:01 AM CDT Kashmir Guaman MD LAB BLOOD ORDERABLES Final Result [facility] [address] [facility] Department [place] [address] * POCT hCG, urine (07/02/2025 7:40 AM CDT) HCG, ur, POC Negative Negative Lot Number [id number] QC Backgroud Clear Acceptable QC Control Line Acceptable Urine 07/02/2025 7:40 AM CDT us Kashmir Guaman MD POINT OF CARE TEST ORDERAB LES Final Result from Last 3 Months Insurance [facility] Care Teams Store Product Demonstrator Relationship Specialty Start Date End Date Floridalma Mclean MD [address] [place] [id number] PCP - General Pediatrics 07/02/25
--- OUTSIDE RECORDS SUMMARY | 2025-09-25 15:54 | XMS_ITS | Continuity of Care Document ---
Author Organization [facility] Address [address] [place] [address] [address] Assessment No assessment recorded. Plan of Treatment [...] observ ation record ed. MARLEN Mcgovern [address], [place], [address], 09/03/2025 11:40:48 Result Notes None recorded. Procedures Surgical History Date Name Laterality Status Provider Name and Address Organization Details Recorded Time 08/21/20 24 Nexplanon Removal completed RHINA DEVRIES MD [address], [place], [address], [facility] 08/21/2024 16:45:12 11/30/19 24 Control Implant Replacement completed Merry Lira, NAVIN- [address], [place], [address], [place] [facility] 11/30/2023 14:58:01 08/29/20 19 Caesarean Section completed Awa Bennett [facility] 11/30/2023 14:37:15 Imaging Results None [...] Updated DateTime 07/10/2025 157.48 cm 43.2 kg/m2 881674.8 g 134/88 mm[Hg] Awa Bennett [facility] 07/10/2025 10:05:59 Social History Question Answer Notes LastModified by Organizat ion Details LastModified Time Tobacco Smoking Status Never Smoker Awa Bennett null, [facility] 11/30/2023 14:36:33 Are You Blind [...] Or The Highest Degree You Have Received? [id number] Information not available 11/30/2023 Are There Any [...] anxious, or unable to sleep at night)? [id number] Information not available 11/30/2023 Family History Relationship [...] ICD10 Code Diagnosis IMO Codes Diagnosis Note [id number] SOFÍA Renee [place] [address] [address] 07/10/2025 09:53:36 07/10/2025 11:45:05 Chlamydial infection [id number] A74.9 [id number] Complete entire course of doxycyline No IC until all partners have been treated and its been 10 days since last dose of medication for allDiscuss ed the various types of STIs, related symptoms and the potential consequenc es (including effects on fertility) of STI infections . Reviewed ways to limit exposure and prevention techniques .TISH in 6-8 wks Cyst of right ovary [id number] N83.201 [id number] records request filled out by pt and [...] Zelaya Member ID Guarantor Name 07/10/2025 1 [facility] (MEDICAID HMO) [id number] Rehan Zaragoza [id number] Rehan Zaragoza Notes Date Note Type Note Provider Name and Address Organization Details Recorded Time 07/10/2025 text/html 19yo [id number] today for ED f/u. She went to the ED for pelvic pain on 07/02. (+) chlamydia and started on doxycyline (has 2 days left). Noted to have a 3.6cm right ovarian cyst per pt via pelvic u/s. Symptoms have been improving.Her partner has started treatmentDenies abnormal vaginal discharge, odors, itching, irritationNeg n/v/fneg flu-like symptoms SOFÍA Renee [address], [place], [address], [place] [facility] 07/10/2025 11:41:56 OBGyn Episode No OBEpisode recorded.
--- OUTSIDE RECORDS SUMMARY | 2025-09-25 15:54 | XMS_ITS | Clinical Summary ---
Author Organization [facility] Address [address] [place] [address] Phone Care Team Providers Care Busperson Name Role Phone Unavailable Primary Care Provider [...] hours as needed for Cough. 120 mL 5 Active Encounters Date Type Department Care Team Description 09/18/2025 External Device Data [facility] Provider, Abstract 09/18/2025 External Device Data [facility] Provider, Abstract 08/28/2025 External Device Data [facility] Provider, [...] on file Legal Sex Female 8:29 PM SHIP WASHER Gender Identity Not on file Sexual Orientation Not on file Last Filed Vital Signs Vital Sign Reading Time Taken Comments Blood Pressure 130/90 11/18/2024 12:44 AM SHIP WASHER Pulse 90 11/18/2024 12:44 AM SHIP WASHER Temperature 37.3 C (99.1 F) 11/18/2024 12:44 AM SHIP WASHER Respiratory Rate 16 11/18/2024 12:44 AM SHIP WASHER Oxygen Saturation 100% 11/18/2024 12:44 AM SHIP WASHER Inhaled Oxygen Concentration - - Weight 86.2 kg (190 lb) 11/17/2024 8:33 PM SHIP WASHER Height 157.5 cm (5' 2) 11/17/2024 8:33 PM SHIP WASHER Body Mass Index 34.75 11/17/2024 8:33 PM SHIP WASHER Plan of Treatment Health Maintenance Due Date Last Done Comments CHLAMYDIA SCREENING (ANNUAL) 11-24 YEARS 2014 HPV VACCINES (1 - 3-dose series) 2018 DTAP/TDAP/TD VACCINES (1 - Tdap) 2022 HEPATITIS B VACCINES (1 of 3 - 19+ 3-dose series) 08/29 CERVICAL CANCER SCREENING 2024 HPV/Cotest (21-29) 2024 PAP SMEAR 2024 INFLUENZA VACCINE (#1) 2025
--- OUTSIDE RECORDS SUMMARY | 2025-09-25 15:55 | XMS_ITS | Data Portability ---
Author Organization [facility] Universal Address [address] [place] [address] Assessment No assessment recorded. Plan of Treatment [...] (ccf) DNA, materna l serum 2024 025 [facility], [address], [place], [address], 09/18/2025 15:41:06 HbA1c (hemogl obin A1c), blood 2024 025 [facility] (Lab), [address], [place], [address], 09/14/2025 17:31:08 type + screen, blood 2024 025 [facility] (Lab), [address], [place], [address], 09/14/2025 17:31:06 rubella igg Ab, titer, serum 2024 025 [facility] (Lab), [address], [place], [address], 09/14/2025 17:31:07 CBC w/ auto diff 2024 025 [facility] (Lab), [address] [facility] [address] [address], [place], [address], 09/14/2025 17:31:05 hepatit is C virus Ab, serum 2024 025 [facility] (Lab), [address], [place], [address], 09/14/2025 17:31:08 HBsAg (hepati tis B surface Ag), serum 2024 025 [facility] (Lab), [address], [place], [address], 09/14/2025 17:31:06 RPR (rapid plasma reagin) , serum 2024 025 [facility] (Lab), [address], [place], [address], 09/14/2025 17:31:08 HIV 1+2 AB + HIV 1 p24 Ag, qualita tive immunoa ssay, serum 2024 025 [facility] (Lab), [address], [place], [address], 09/14/2025 17:31:07 genetic screen, unspeci fied specime n 2024 025 [facility], [address], [place], [address], 09/24/2025 18:11:38 Referral None recorde d. Procedures [...] Not Available [facility] [address], [place], [address], 09/18/2025 15:41:06 09/18/20 25 09/18/2025 [UNIT Y] ANEUP LOIDY NIPT 22Q11.2 microdeletio n LOW RISK <1 in 10,000 normal Not Available [facility] [address], [place], [address], 09/18/2025 15:41:06 09/18/20 25 09/18/2025 [UNIT Y] ANEUP LOIDY NIPT sex chromosome aneuploidy NOT DETECT ED normal Not Available [facility] [address], [place], [address], 09/18/2025 15:41:06 09/18/20 25 09/18/2025 [UNIT Y] ANEUP LOIDY NIPT monosomy X LOW RISK <1 in 10,000 normal Not Available [facility] [address], [place], [address], 09/18/2025 15:41:06 09/18/20 25 09/18/2025 [UNIT Y] ANEUP LOIDY NIPT trisomy 13 LOW RISK <1 in 10,000 normal Not Available [facility] [address], [place], [address], 09/18/2025 15:41:06 09/18/20 25 09/18/2025 [UNIT Y] ANEUP LOIDY NIPT trisomy 18 LOW RISK <1 in 10,000 normal Not Available [facility] [address], [place], [address], 09/18/2025 15:41:06 09/18/20 25 09/18/2025 [UNIT Y] ANEUP LOIDY NIPT trisomy 21 LOW RISK <1 in 10,000 normal Not Available [facility] [address], [place], [address], 09/18/2025 15:41:06 09/18/20 25 09/18/2025 [UNIT Y] ANEUP LOIDY NIPT sex MALE normal Not Available [facility] [address], [place], [address], 09/18/2025 15:41:06 09/18/20 25 09/18/2025 [UNIT Y] ANEUP LOIDY NIPT gestation SINGLE TON normal Not Available [facility] [address], [place], [address], 09/18/2025 15:41:06 09/18/20 25 09/18/2025 [UNIT Y] ANEUP LOIDY NIPT for detailed report, see pdf See PDF normal Not Available [facility] [address], [place], [address], 09/18/2025 15:41:06 05/26/20 24 05/26/2024 CT/GC AND TRICH OMONA S VAGIN [place] (RRNA ), URINE chlamydia trachomatis, PCR Negati ve negati ve Not Available [facility] (Lab) [address], [place], [address], 05/27/2024 12:50:30 05/26/20 24 05/26/2024 CT/GC AND TRICH OMONA S VAGIN [place] (RRNA ), URINE neisseria gonorrhoeae, PCR Negati ve negati ve Not Available [facility] (Lab) [address], [place], [address], 05/27/2024 12:50:30 05/26/20 24 05/26/2024 CT/GC AND TRICH OMONA S VAGIN [place] (RRNA ), URINE trichomonas vaginalis ribosomal RNA (rrna) Negati ve negati ve Not Available [facility] (Lab) [address], [place], [address], 05/27/2024 12:50:30 08/21/20 24 08/21/2024 CT/GC AND TRICH OMONA S VAGIN [place] (RRNA ), URINE chlamydia trachomatis, PCR Negati ve negati ve Not Available [facility] (Lab) [address] [facility] [address] [facility], [place], [address], 08/22/2024 13:30:35 08/21/20 24 08/21/2024 CT/GC AND TRICH OMONA S VAGIN [place] (RRNA ), URINE neisseria gonorrhoeae, PCR Negati ve negati ve Not Available [facility] (Lab) [address] [facility] [address], [place], [address], 08/22/2024 13:30:35 08/21/20 24 08/21/2024 CT/GC AND TRICH OMONA S VAGIN [place] (RRNA ), URINE trichomonas vaginalis ribosomal RNA (rrna) Negati ve negati ve Not Available [facility] (Lab) [address] [facility] [address], [place], [address], 08/22/2024 13:30:35 09/03/20 25 09/03/2025 CT/GC AND TRICH OMONA S VAGIN [place] (RRNA ), URINE chlamydia trachomatis, PCR Negati ve negati ve Not Available [facility] (Lab) [address] [facility] [address] [facility], [place], [address], 09/04/2025 16:25:01 09/03/20 25 09/03/2025 CT/GC AND TRICH OMONA S VAGIN [place] (RRNA ), URINE neisseria gonorrhoeae, PCR Negati ve negati ve Not Available [facility] (Lab) [address] [facility] [address], [place], [address], 09/04/2025 16:25:01 09/03/20 25 09/03/2025 CT/GC AND TRICH OMONA S VAGIN [place] (RRNA ), URINE trichomonas vaginalis ribosomal RNA (rrna) Negati ve negati ve Not Available [facility] (Lab) [address] [facility] [address], [place], [address], 09/04/2025 16:25:01 12/18/20 25 09/13/2025 CBC W/DIF F WBC 7.5 10'3/ uL 3.5-10 .5 Not Available [facility] (Lab) [address], [place], [address], 09/14/2025 17:31:05 09/13/20 25 09/13/2025 CBC W/DIF F RBC 5.07 10'6/ uL (based on docume nted legal sex) 3.80-5 .20 Not Available [facility] (Lab) [address], [place], [address], 09/14/2025 17:31:05 09/13/20 25 09/13/2025 CBC W/DIF F HGB 13.2 g/dL (based on docume nted legal sex) 11.6-1 5.4 Not Available [facility] (Lab) [address], [place], [address], 09/14/2025 17:31:05 09/13/20 25 09/13/2025 CBC W/DIF F HCT 42.4 % (based on docume nted legal sex) 34.0-4 5.0 Not Available [facility] (Lab) [address], [place], [address], 09/14/2025 17:31:05 09/13/20 25 09/13/2025 CBC W/DIF F MCV 83.6 fL 80.0-9 9.0 Not Available [facility] (Lab) [address], [place], [address], 09/14/2025 17:31:05 09/13/20 25 09/13/2025 CBC W/DIF F MCH 26.0 pg 27.0-3 4.0 low Not Available [facility] (Lab) [address] [facility] [address], [place], [address], 09/14/2025 17:31:05 09/13/20 25 09/13/2025 CBC W/DIF F MCHC 31.1 g/dL 32.0-3 5.5 low Not Available [facility] (Lab) [address] [facility] [address] [facility], [place], [address], 09/14/2025 17:31:05 09/13/20 25 09/13/2025 CBC W/DIF F RDW 13.2 % 11.0-1 5.0 Not Available [facility] (Lab) [address] [facility] [address] [facility], [place], [address], 09/14/2025 17:31:05 09/13/20 25 09/13/2025 CBC W/DIF F plt 389 10'3/ uL 150-40 0 Not Available [facility] (Lab) [address] [facility] [address] [facility], [place], [address], 09/14/2025 17:31:05 09/13/20 25 09/13/2025 CBC W/DIF F MPV 10.9 fL 8.8-12 .1 Not Available [facility] (Lab) [address] [facility] [address] [facility], [place], [address], 09/14/2025 17:31:05 09/13/20 25 09/13/2025 CBC W/DIF F NRBC's 0.0 % 0.0 Not Available [facility] (Lab) [address] [facility] [address] [facility], [place], [address], 09/14/2025 17:31:05 09/13/20 25 09/13/2025 CBC W/DIF F absolute NRBCs 0.0 10'3/ uL no refere nce range establ ished Not Available [facility] (Lab) [address] [facility] [address] [facility], [place], [address], 09/14/2025 17:31:05 09/13/20 25 09/13/2025 CBC W/DIF F neutrophils 68.2 % 34.0-7 3.0 Not Available [facility] (Lab) [address] [facility] [address], [place], [address], 09/14/2025 17:31:05 09/13/20 25 09/13/2025 CBC W/DIF F lymphocytes 26.7 % 15.0-5 0.0 Not Available [facility] (Lab) [address] [facility] [address], [place], [address], 09/14/2025 17:31:05 09/13/20 25 09/13/2025 CBC W/DIF F monocytes 3.6 % 1.0-15 .0 Not Available [facility] (Lab) [address] [facility] [address] [facility], [place], [address], 09/14/2025 17:31:05 09/13/20 25 09/13/2025 CBC W/DIF F eosinophils 0.8 % 0.0-8. 0 Not Available [facility] (Lab) [address] [facility] [address], [place], [address], 09/14/2025 17:31:05 09/13/20 25 09/13/2025 CBC W/DIF F basophils 0.3 % 0.0-2. 0 Not Available [facility] (Lab) [address] [facility] [address], [place], [address], 09/14/2025 17:31:05 09/13/20 25 09/13/2025 CBC W/DIF F immature granulocytes 0.4 % no define d refere nce range Immat ure Granu locyt es (IG) repre sents autom ated enume ratio n of Metam yeloc ytes, Myelo cytes and Promy elocy ryder when IG is < 5%. Blast s are not inclu ded in IG and repor shefali separ ately if prese nt. Not Available [facility] (Lab) [address] [facility] [address], [place], [address], 09/14/2025 17:31:05 09/13/20 25 09/13/2025 CBC W/DIF F absolute neutrophils 5.1 10'3/ uL 1.5-8. 0 Not Available [facility] (Lab) [address] [facility] [address], [place], [address], 09/14/2025 17:31:05 09/13/20 25 09/13/2025 CBC W/DIF F absolute lymphocytes 2.0 10'3/ uL 1.0-4. 0 Not Available [facility] (Lab) [address] [facility] [address], [place], [address], 09/14/2025 17:31:05 09/13/20 25 09/13/2025 CBC W/DIF F absolute monocytes 0.3 10'3/ uL 0.2-1. 0 Not Available [facility] (Lab) [address], [place], [address], 09/14/2025 17:31:05 09/13/20 25 09/13/2025 CBC W/DIF F absolute eosinophils 0.1 10'3/ uL 0.0-0. 6 Not Available [facility] (Lab) [address] [facility] [address] [facility], [place], [address], 09/14/2025 17:31:05 09/13/20 25 09/13/2025 CBC W/DIF F absolute basophils 0.0 10'3/ uL 0.0-0. 3 Not Available [facility] (Lab) [address] [facility] [address], [place], [address], 09/14/2025 17:31:05 09/13/20 25 09/13/2025 CBC W/DIF [...] garcia book. nm.or g/gen derx Not Available [facility] (Lab) [address] [facility] [address] [facility], [place], [address], 09/14/2025 17:31:05 09/13/20 25 09/13/2025 TYPE/ RH/SC REEN ABO/Rh type O POS Not Available [facility] (Lab) [address] [facility] [address] [facility], [place], [address], 09/14/2025 17:31:06 09/13/20 25 09/13/2025 TYPE/ RH/SC REEN antibody screen NEG Not Available [facility] (Lab) [address], [place], [address], 09/14/2025 17:31:06 09/13/20 25 09/13/2025 TYPE/ RH/SC REEN exp date 2024 23:59 Not Available [facility] (Lab) [address] [facility] [address] [facility], [place], [address], 09/14/2025 17:31:06 09/13/20 25 09/13/2025 HEPAT ITIS [...] used inter sadler eably . Not Available [facility] (Lab) [address] [facility] [address] [facility], [place], [address], 09/14/2025 17:31:06 09/13/20 25 09/13/2025 HIV 1/2 ANTIG EN/AN TIBOD Y, REFLE X CONFI RMATI ON HIV antigen/anti body Nonrea ctive nonrea ctive HIV-1 antig en and HIV-1 /HIV- 2 antib odies were not detec shefali. No labor atory evide nce of HIV infec tion. Not Available [facility] (Lab) [address] [facility] [address], [place], [address], 09/14/2025 17:31:07 09/13/20 25 09/13/2025 RUBEL LA IGG ANTIB ALBIN, QUANT rubella antibodies, IgG Reacti ve reacti ve Not Available [facility] (Lab) [address] [facility] [address], [place], [address], 09/14/2025 17:31:07 09/13/20 25 09/13/2025 RUBEL LA IGG ANTIB ALBIN, QUANT rubella antibodies, IgG quant 17.5 IU/mL >=10 Non-r eacti ve (Non- Immun e) <10 IU/mL React carol (Immu ne) > or = 10 IU/mL Not Available [facility] (Lab) [address] [facility] [address], [place], [address], 09/14/2025 17:31:07 09/13/20 25 09/13/2025 HEMOG LOBIN [...] >8.0% Actio n sugge sted Not Available [facility] (Lab) [address] [place], [address], 09/14/2025 17:31:08 09/13/20 25 09/13/2025 HEPAT ITIS [...] used inter sadler eably . Not Available [facility] (Lab) [address] [facility] [address], [place], [address], 09/14/2025 17:31:08 09/13/20 25 09/13/2025 RPR SCREE N, REFLE X TITER /CONF IRMAT ION RPR qualitative Nonrea ctive nonrea ctive Not Available [facility] (Lab) [address] [facility] [address], [place], [address], 09/14/2025 17:31:08 09/03/20 25 09/03/2025 imagi ng/di agnos tic resul t No observ ation record ed. MARLEN Mcgovern [address], [place], [address], 09/03/2025 11:40:48 Result Notes None recorded. Procedures Surgical History Date Name Laterality Status Provider Name and Address Organization Details Recorded Time 08/21/20 24 Nexplanon Removal completed RHINA DEVRIES MD [address], [place], [address], [facility] 08/21/2024 16:45:12 11/30/19 24 Control Implant Replacement completed Merry Lira NAVIN- [address], [place], [address], [facility] 11/30/2023 14:58:01 08/29/20 19 Caesarean Section completed Awa Bennett [facility] 11/30/2023 14:37:15 Imaging Results None recorded. [...] Updated DateTime 07/10/2025 157.48 cm 43.2 kg/m2 692970.8 g 134/88 mm[Hg] Awa Bennett [facility] 07/10/2025 10:05:59 Date Recorded Body height Body mass index (BMI) Body mass index (BMI) [Percentile] Per age and sex Body weight Systolic And Diastolic Provider Name and Address Organization Details Last Updated DateTime 08/21/2024 157.48 cm 36.9 kg/m2 97 % 56130.6 6 g 130/82 mm[Hg] Gabby Bundy [facility] 16:11:02 Date Recorded Body height Body mass index (BMI) Body weight Systolic And Diastolic Provider Name and Address Organization Details Last Updated DateTime 09/03/2025 157.48 cm 44.4 kg/m2 161054.95 g 142/89 mm[Hg] GIANLUCA MCGRATH [facility] 09/03/2025 10:03:36 Social History Question Answer Notes LastModified by Organizat ion Details LastModified Time Tobacco Smoking Status Never Smoker Awa obrien, [facility] 11/30/2023 14:36:33 Are You Blind Or [...] Or The Highest Degree You Have Received? [id number] Information not available 11/30/2023 Are There Any [...] anxious, or unable to sleep at night)? [id number] Information not available 11/30/2023 Family History Relationship [...] (Food, seasonal, environmental ) N Other Y Drug/Latex Allergies/Reactions N Blood Transfusion N Breast Cancer N Dermatologic Disorders N [...] ICD10 Code Diagnosis IMO Codes Diagnosis Note [id number] Merry Lira [facility] [address],[facility] [place] [address] 11/30/2023 13:55:35 11/30/2023 15:04:24 Contraception care management 682360846 Z30.9 Discussed all control options in depth and pt is interested in Nexplanon. Discussed all risks and benefits including irregular unschedule d bleeding. Pt verbalized understand ing and would like to proceed. She is aware that she needs to call us on the 1st day of her period to schedule placement. Implantati on of subcutaneous contraceptive 822201660 Z30.46 Patient is here currently on her [...] the insertion site Removal of subcutaneous contraceptive 221106437 Z30.46 Removal site was cleansed with betadine and 3cc of lidocaine used for anesthesia . Device was removed in normal fashion without difficulty . Steri stips and pressure bandage placed. [id number] Merry Lira [facility] [address] [address] 01/13/2024 15:19:30 01/13/2024 17:21:17 Venereal disease screening 207915882 Z11.3 TISH urine sentNo issuesPart ner treatedCou nseled on safe sex practices. Time spent in visit is a total of 15 mins with at least 50% of visit consisting of counseling and review of plan of care. [id number] RHINA DEVRIES MD [facility] [address],[place] [address] 03/24/2024 12:30:22 03/24/2024 12:50:06 Venereal disease screening 329489066 Z11.3 - discussed testing options including urine for GC/CT/tric h and blood testing for HIV/HepB/H epC/RPR- patient desires all testing- will follow up as results are available [id number] RHINA DEVRIES MD [facility] [address],[place] [address] 05/26/2024 15:25:28 05/26/2024 15:43:15 Venereal disease screening 178402462 Z11.3 [id number] RHINA DEVRIES MD [facility] [address],[place] [address] 08/21/2024 15:55:22 08/21/2024 16:52:48 Removal of subcutaneous contraceptive 065941889 Z30.46 - Nexplanon removed without issue- declines other control at this time- discussed quick return of fertility Venereal d isease screening 532508653 Z11.3 - urine sent for STD screening [id number] SOFÍA Renee [facility] [address],[place] [address] 07/10/2025 09:53:36 07/10/2025 11:45:05 Chlamydial infection 930483167 A74.9 [id number] Complete entire course of doxycyline No IC until all partners have been treated and its been 10 days since last dose of medication for allDiscuss ed the various types of STIs, related symptoms and the potential consequenc es (including effects on fertility) of STI infections . Reviewed ways to limit exposure and prevention techniques .TISH in 6-8 wks Cyst of right ovary [id number] 1567646 N83.201 [id number] records request filled out by pt and faxed to obtain recent pelvic u/swe agreed to repeat a pelvic u/s in 6-8 wks along with TISH of chlamydiac ontracepti on options reviewed , declined at this timePrecau tions reviewed Time spent in visit is a total of 30 mins with at least 50% of visit consisting of counseling and review of plan of care. [id number] RHINA DEVRIES MD [facility] [address] [address] 09/03/2025 09:33:21 09/03/2025 10:00:12 [id number] RHINA DEVRIES MD [facility] [address] [address] 09/03/2025 09:34:04 09/03/2025 10:49:04 test positive 236289635 Z32.01 [id number] 1. Exam today within normal limits.2. Ultrasound today confirms GA and viability. EDC . PAPA/Levon a testing done: will f/u as indicated. 4. ACOG guidelines and plan of care for reviewed with patient. All questions answered.5 . Return to office at 12 weeks for new OB visit6. Will need new OB labs at next visit.7. Genetic screening: desires at 10 weeks. History of chlamydial infection 225801661 Z86.19 [id number] - repeat test sent today Genetic in vestigation procedure 49810771 Z31.430 Health Concerns Section Related Observation LastModified by Organization Detai ls LastModified Time None Recorded Concern Status LastModified by Organization Details LastModified Time None Recorded Advance Directives Directive None Recorded Payers Insurance Date Sequence Insurance Name Policy Number Policy Zelaya Covered Member ID Zelaya Member ID Guarantor Name 03/09/2025 1 [facility] (MEDICAID HMO) [id number] Rehan Zaragoza [id number] Rehan Zaragoza 03/15/2025 1 *SELF PAY* Cheryl Zaragoza 03/27/2025 1 [facility] [place] [employer] [place] Rehan Zaragoza [id number] Rehan Zaragoza 09/02/2025 1 [facility] (MEDICAID HMO) [id number] Rehan Zaragoza [id number] Rehan Zaragoza Notes Date Note Type Note Provider Name and Address Organization Details Recorded Time 08/21/2024 text/html Patient presents for Nexplanon removal and STD testing. Does not desire other form of control at this point. RHINA DEVRIES MD [address], [place], [address], [facility] 08/21/2024 16:46:28 07/10/2025 text/html 19yo [id number] today for ED f/u. She went to the ED for pelvic pain on 07/02. (+) chlamydia and started on doxycyline (has 2 days left). Noted to have a 3.6cm right ovarian cyst per pt via pelvic u/s. Symptoms have been improving.Her partner has started treatmentDenies abnormal vaginal discharge, odors, itching, irritationNeg n/v/fneg flu-like symptoms SOFÍA Renee [address], [place], [address], [facility] 07/10/2025 11:41:56 09/03/2025 text/html ROS as [...] s. RHINA DEVRIES MD [address], [place], [address], [facility] 09/03/2025 10:31:02 OBGyn Episode Ob Episode Information Episode Created Date Number of Fetuses Patient Bloodtype Patient rh Status Prepregnancy Weight lbs Domestic Partner Domestic Partner Phone Father Name Wooden Frame Builder Status 11/30/19 24 1 CLOSED Fetus Data First Name Last Name Admitted to NICU Weight (g) Sex Living Outcome Pediatric Complications Fetus ID Race Codes Race Delivery Type 2806.37 3704 M Full Term [id number] Primary Mazin Calculation Initial Mazin Date Initial [...]
--- OUTSIDE RECORDS SUMMARY | 2025-09-25 15:55 | XMS_ITS | Continuity of Care Document ---
Author Organization [facility] [place] Address [address] [place] [address] Assessment No assessment recorded. Plan of Treatment [...] PCR Negati ve negati ve Not Available [facility] (Lab) [address], [place], [address], 09/04/2025 16:25:01 09/03/20 25 09/03/2025 CT/GC AND TRICH OMONA S VAGIN [place] (RRNA ), URINE neisseria gonorrhoeae, PCR Negati ve negati ve Not Available [facility] (Lab) [address], [place], [address], 09/04/2025 16:25:01 09/03/20 25 09/03/2025 CT/GC AND TRICH OMONA S VAGIN [place] (RRNA ), URINE trichomonas vaginalis ribosomal RNA (rrna) Negati ve negati ve Not Available [facility] (Lab) [address], [place], [address], 09/04/2025 16:25:01 09/03/20 25 09/03/2025 imagi ng/di agnos tic resul t No observ ation record ed. MARLEN Mcgovern [address], [place], [address], 09/03/2025 11:40:48 Result Notes None recorded. Procedures Surgical History Date Name Laterality Status Provider Name and Address Organization Details Recorded Time 08/21/20 24 Nexplanon Removal completed RHINA DEVRIES MD [address], [place], [address], [facility] 08/21/2024 16:45:12 11/30/19 24 Control Implant Replacement completed Merry Lira [facility]- [address], [place], [address], [facility] 11/30/2023 14:58:01 08/29/20 19 Caesarean Section completed Awa Bennett [facility] 11/30/2023 14:37:15 Imaging Results None recorded. [...] Updated DateTime 09/03/2025 157.48 cm 44.4 kg/m2 470771.95 g 142/89 mm[Hg] GIANLUCA MCGRATH [facility] 09/03/2025 10:03:36 Social History Question Answer Notes LastModified by Organizat ion Details LastModified Time Tobacco Smoking Status Never Smoker Awa obrien, [facility] 11/30/2023 14:36:33 Are You Blind Or [...] Or The Highest Degree You Have Received? [id number] Information not available 11/30/2023 Are There Any [...] anxious, or unable to sleep at night)? [id number] Information not available 11/30/2023 Family History Relationship [...] ) N Other Y Drug/Latex Allergies/Reactions N Breast Cancer N Blood Transfusion N Lung Disease N Dermatologic Disorders N Defects or Inherited Disease N Breast Problem N Gestational Diabetes N Hematologic disorders N Anesthesia Complications N History of STI Y Deep Vein Thrombosis N Polycystic ovary syndrome N Anxiety Disorder N Autoimmune disease N Arthritis N Polyps N Infertility N History of abnormal pap N Acid Reflux (GERD) N Cancer N [...] ICD10 Code Diagnosis IMO Codes Diagnosis Note [id number] MD Jigna CONNELLY [address] [address] 09/03/2025 09:33:21 09/03/2025 10:00:12 [id number] RHINA DEVRIES MD [place] [address] [address] 09/03/2025 09:34:04 09/03/2025 10:49:04 test positive [id number] Z32.01 [id number] 1. Exam today within normal limits.2. Ultrasound [...] at 10 weeks. 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 RHINA DEVRIES MD [address], [place], [address], [place] [facility] 09/03/2025 10:31:02 OBGyn Episode No OBEpisode recorded.
[2025-09-25 15:59] VITALS: BP 140/93; PULSE 91; RESP 19; TEMP 36.4; O2SAT 100
--- OUTSIDE RECORDS SUMMARY | 2025-09-25 21:24 | XMS_ITS | Clinical Summary ---
Author Organization [facility] Address [address] [place] [address] Care Team Providers Care Clinic Md Associate Name Role Phone Floridalma Mclean MD Primary Care Provider [phone] Allergies No known active allergies Encounters Date Type Department Care Team Description 07/02/2025 7:18 AM CDT - 07/02/2025 3:26 PM CDT Emergency [facility] Emergency Department [address] [place] [address] Kashmir Guaman MD Abdominal pain, [...] on file Legal Sex Female 7:40 PM [employer]ANNING [employer]NA[employer] Gender Identity Not on file Sexual [...] Rapid HIV, POC Negative Negative Lot Number [id number] QC Control Line Acceptable Blood 07/02/2025 10:5 [...] it. Electronically signed by: Jermaine Frederick M.D. [facility] Anahi ABBOTT IM CT PROCEDURES Final Result * (ABNORMAL) N. gonorrhoeae/C. trachomatis Amplification Urine (07/02/2025 7:49 AM CDT) C. trachomatis Detected(A) Not Detected [facility] N. gonorrhoeae Not Detected Not Detected [facility] Comment: Interpretive Data This assay detects Chlamydia trachomatis and Neisseria gonorrhoeae by nucleic acid amplification testing (NAAT). This assay has been cleared by the [place] Food and Drug administration. The performance characteristics of this test have been verified by the [facility] Molecular Infectious Disease laboratory. The performance characteristics of this test have not been evaluated in individuals less than 14 years of age. Current Interpretive Data last revised 2023. Urine (None) 07/02/2025 7:49 AM CDT 07/02/2025 7:57 AM CDT Ravin Christian MD LAB MICROBIOLOGY - GENERAL ORDER OSMANI Final Result Performing Organization Address [facility] Co de Phone Number [facility] [place] [address] [facility] * Trichomonas vaginalis PCR Urine (07/02/2025 7:49 AM CDT) Pathologist [facility] Trichomonas DNA Not Detected Not Detected [facility] Urine 07/02/2025 7:49 AM CDT 07/02/2025 7:57 AM CDT Narrative [facility] - 07/02/2025 9:38 AM CDT Interpretive Data: This assay detects Trichomonas vaginalis by nucleic acid amplification testing (NAAT). This assay has been cleared by the [place] Food and Drug administration. The performance characteristics of this test have been verified by the [facility] Molecular Infectious Disease laboratory. Excess blood in specimens may be inhibitory and result in false negative results. The performance of this test has not been evaluated in women or individuals less than 18 years of age. Ravin Christian MD LAB MICROBIOLOGY - GENERAL ORDER OSMANI Final Result Performing Organization Address [facility] [place] [address] [facility] * eGFR (07/02/2025 7:49 AM CDT) [facility] eGFR >90 >=60 mL/min/1. 73 m2 [...] MD LAB BLOOD ORDERABLES F inal Result [facility] Department [place] [address] * Differential, auto (07/02/2025 7:49 AM CDT) Neutrophil abs 4.57 1.50 - 6.50 K/cumm Imm gran abs 0.02 0.00 - 0.10 K/cumm [facility] Lymphocyte abs 1.74 0.80 - 3.30 K/cumm [facility] Monocyte abs 0.51 0.20 - 0.80 K/cumm [facility] Eosinophil abs 0.03 0.00 - 0.50 K/cumm [facility] Basophil abs 0.03 0.00 - 0.10 K/cumm [facility] Neutrophil pct 66.3 % [facility] Comment: Interpretive Data Percent cell count reference ranges are not reported, since discordance with absolute values may lead to misinterpretation of CBC data. Current Interpretive Data was last revised on 2018. Imm gran pct 0.3 % [facility] Comment: Interpretive Data Percent cell count reference ranges are not reported, since discordance with absolute values may lead to misinterpretation of CBC data. Current Interpretive Data was last revised on 2018. Lymphocyte pct 25.2 % [facility] Comment: Interpretive Data Percent cell count reference ranges are not reported, since discordance with absolute values may lead to misinterpretation of CBC data. Current Interpretive Data was last revised on 2018. Monocyte pct 7.4 % [facility] Comment: Interpretive Data Percent cell count reference ranges are not reported, since discordance with absolute values may lead to misinterpretation of CBC data. Current Interpretive Data was last revised on 2018. Eosinophil pct 0.4 % [facility] Comment: Interpretive Data Percent cell count reference ranges are not reported, since discordance with absolute values may lead to misinterpretation of CBC data. Current Interpretive Data was last revised on 2018. Basophil pct 0.4 % [facility] Comment: Interpretive Data Percent cell count reference ranges are not reported, since discordance with absolute values may lead to misinterpretation of CBC data. Current Interpretive Data was last revised on 2018. Blood 07/02/2025 7:49 AM CDT 07/02/2025 8:01 AM CDT us Myla Littlejohn MD LAB BLOOD ORDERABLES F inal Result [facility] Department [place] [address] * Urinalysis reflex to microscopic (07/02/2025 7:49 AM CDT) Color, ur Straw Yellow Clarity, ur Clear Clear [facility] Specific gravity, ur 1.030 1.003 - 1.030 [facility] pH, urine 6.0 [facility] Comment: Interpretive Data U rine pH is affected by diet, medications, systemic acid-base disturbances, and renal tubular function. pH may affect urinary stone formation. For example, urine pH below 6.0 may help reduce the tendency for calcium phosphate stones and pH greater than 6.0 may reduce the tendency for uric acid stone formation. Source: [employer] Current Interpretive Data was last revised on 2017 Protein, ur ql Trace Negative [facility] Glucose, ur ql Negative Negative [facility] Ketones, ur Negative Negative [facility] Bilirubin, ur Negative Negative [facility] Blood, ur Negative Negative [facility] Urobilinogen, ur <2.0 <2.0 mg/dL [facility] Nitrite, ur Negative Negative [facility] Leukocyte esterase, ur Negative Negative [facility] UA reflex comment Reflex conditions for microscopic UA not met. [facility] Urine 07/02/2025 7:49 AM CDT 07/02/2025 7:55 AM CDT Kashmir Guaman MD LAB URINE ORDERABLES Final Result Performing Organization Address [facility]/ZIP Co de Phone Number [facility] Department [place] [address] * (ABNORMAL) CBC with auto differential (07/02/2025 7:49 AM CDT) WBC 6.90 3.80 - 9.90 K/cumm Hgb 13.3 11.9 - 15.5 g/dL [facility] Hct 42.5 35.6 - 45.5 % [facility] Plt 296 150 - 400 K/cumm [facility] MPV 11.2 9.1 - 12.3 fL [facility] RBC 5.21(H) 3.90 - 5.20 M/cumm [facility] MCV 81.6 81.3 - 96.4 fL [facility] MCH 25.5(L) 27.1 - 33.3 pg [facility] MCHC 31.3(L) 32.3 - 35.7 g/dL [facility] RDW CV 13.5 11.1 - 14.9 % [facility] RDW SD 40.0 35.7 - 48.1 fL [facility] NRBC abs 0.00 0.00 - 0.01 K/cumm [facility] Blood Venous blood specimen / Unknown 07/02/2025 7:49 AM CDT 07/02/2025 8:01 AM CDT Kashmir Guaman MD LAB BLOOD ORDERABLES Final Result Performing Organization Address City/[facility]/ZIP Co de Phone Number [facility] Department [place] [address] * Lipase (07/02/2025 7:49 AM CDT) Lipase 26 10 - 99 Units/L Blood Venous blood specimen / Unknown 07/02/2025 7:49 AM CDT 07/02/2025 8:01 AM CDT Kashmir Guaman MD LAB BLOOD ORDERABLES Final Result [facility] Department [place] [address] * Comprehensive metabolic panel (07/02/2025 7:49 AM CDT) Sodium 141 135 - 145 mmol/L Potassium, pl 4.1 3.3 - 4.9 mmol/L [facility] Chloride 109 97 - 110 mmol/L [facility] CO2 24 22 - 32 mmol/L [facility] Anion gap 8 2 - 15 mmol/L [facility] BUN 12 6 - 25 mg/dL [facility] Creatinine 0.68 0.60 - 1.10 mg/dL [facility] Glucose 91 70 - 199 mg/dL [facility] Comment: Interpretive Data Fasting glucose >/= 126 [...] 2022. Calcium 9.0 8.5 - 10.3 mg/dL [facility] Bilirubin, total 0.4 0.1 - 1.2 mg/dL [facility] Protein, pl 7.7 6.5 - 8.5 g/dL [facility] Albumin 4.1 3.5 - 5.0 g/dL [facility] Alk phos 89 40 - 130 Units/L [facility] ALT 16 7 - 45 Units/L [facility] AST 15 10 - 45 Units/L [facility] Blood 07/02/2025 7:49 AM CDT 07/02/2025 8:01 AM CDT Kashmir Guaman MD LAB BLOOD ORDERABLES Final Result [facility] Department [place] [address] * POCT hCG, urine (07/02/2025 7:40 AM CDT) HCG, ur, POC Negative Negative Lot Number [id number] QC Backgroud Clear Acceptable QC Control Line Acceptable Urine 07/02/2025 7:40 AM CDT us Kashmir Guaman MD POINT OF CARE TEST ORDERAB LES Final Result from Last 3 Months Insurance [facility] Care Teams Clinic Md Associate Relationship Specialty Start Date End Date Floridalma Mclean MD [address] [place] [id number] PCP - General Pediatrics 07/02/25
== END 2025-09-25 21:31 | disposition left against medical advice (07) ==
LOC: ANHED 21:22
DX: O20.9 Hemorrhage in early pregnancy, unspecified (principal)
CPT/HCPCS: 99199